=== PATIENT | female | born 1965 | race Caucasian/White ===

== ENCOUNTER 2024-12-12 13:01 | Day surgery (SDC) | payer MEDICARE, SELFPAY ==
--- NOTE | 2024-12-12 13:08 | EXP.PAIN.PRO ---
Procedure Date: 12/12/24 Time: 13:42 Anesthesiologist:: Kayla Jamil APRN Complications:: None Pre-procedure Diagnosis:: Degenerative disc disease of lumbar spine with lumbar radiculopathy symptoms Post-procedure Diagnosis:: Same Indications for Procedure:: Patient is a pleasant 59-year-old female who presents today for intrathecal refill and reprogram. Today she rates her pain a 7 out of 10. She denies any new trauma or injury. She does state that she has been having more pain and would like to see about having an increase in her pump.Patient is currently managed with morphine 2 mg/mL with a daily dose of 0.3 mg/day. She denies any side effects from this medication. She does state that she typically gets about a month or so between her refill dates. Patient does state that she knew she was running low with this medication and so she has been reserving her boluses as a precaution. patient does also have prescriptions of gabapentin from an outside provider. Eric has been reviewed and is appropriate. Physical Exam: General: Alert and oriented x3, no acute distress, pleasant and cooperative Lungs: Respirations even and unlabored, symmetrical chest expansion Eyes: PERRL Musculoskeletal: Flexion and extension of lumbar [spine] somewhat guarded secondary to pain, [antalgic gait noted] Neurological: Speech clear, no gross sensory deficit Procedure Details:: Informed consent was obtained and the risk and benefits of the procedure were explained to the patient. The patient had noninvasive monitoring placed including noninvasive blood pressure cuff and pulse oximeter. Patient's pump was interrogated. The area over the pump was cleansed with chlorhexidine as a cleansing solution. In sterile fashion the pump was accessed with a 22-gauge needle. Approximately 2.1 mls of the pump solution was removed and discarded appropriately. The pump was then refilled with 20 mL's of morphine 2 mg/mL. The needle was withdrawn and a bandage was placed over the puncture site. The infusion rate was reprogrammed and increased 10% to morphine 0.5499 mg/day. The patient tolerated well with no complication. Plan and Disposition:: Patient tolerated the procedure well with no complications and was discharged neurologically intact. I did discuss with the patient that we will plan on changing her concentration to see if she can get a little bit longer between her pump refills. Patient will be refilled with morphine 3 mg/mL at her next visit. Patient agrees with this plan of care. I did discuss with the patient that we will review over how patient will return to clinic on or before their next intrathecal refill date. We will see the patient back in the clinic at the next intrathecal refill. Patient has been instructed to contact the clinic with any concerns before the next appointment. Dr. Bhatt has reviewed this note and agrees with this plan of care. This note was dictated using voice recognition software and make contain errors or omissions. -- It Is medically necessary for this patient to continue to have their intrathecal pump refilled at regular intervals. This patient had an intrathecal pain pump implanted after meeting criteria of chronic intractable pain for greater than 3 months and failing conservative treatments. Patient has committed and been compliant to the treatment plan and all planned follow up care. Since implantation of the intrathecal pain pump, the patient has had decreased pain and been more functional. Oral medications have been reduced including intake of oral opioids. Patient continues to do well with intrathecal therapy with decrease in pain symptoms and increase in functional status. Stopping intrathecal medications can lead to life threatening withdrawal, seizures, cardiac arrest, severe pain, and possible . Pumps that are not refilled at regular intervals can be damages and cause and need for replacement. We continually titrate dose and concentration to optimize pain relief and function. We are limited in concentration for certain drugs to safely deliver medications through the pump and stay within the recommendations from the Polyanalgesic Consensus Committee Guidelines. Depending on dose and concentration these pumps may need to be refilled sooner than 3 months as we titrate. A UDS is needed to verify patient's compliance with our office pain contract. This is ordered based off specific treatments related to chronic pain with the potential to abuse certain medications.
[2024-12-12 13:19] VITALS: BP 126/60; PULSE 70; RESP 16; TEMP 36.8; O2SAT 98; BMI 29.2
[2024-12-12 13:36] VITALS: BP 165/78; PULSE 65; RESP 18; O2SAT 96
[2024-12-12 13:38] VITALS: BP 165/78; PULSE 67; RESP 18; O2SAT 98
[2024-12-12 13:50] VITALS: BP 117/66; PULSE 67; RESP 16; O2SAT 100
== END 2024-12-12 13:50 | disposition home or self-care (01) ==
PROVIDERS: PCP Nurse Practitioner Family; Visit Provider Nurse Practitioner Family
DX: M51.16 Intervertebral disc disorders with radiculopathy, lumbar region (principal)
CPT/HCPCS: 62370

== ENCOUNTER 2025-03-06 13:13 | Day surgery (SDC) | payer MEDICARE, SELFPAY ==
--- NOTE | 2025-03-06 13:18 | P.HP_ITS ---
History of Present Illness *Admission Date: 03/06/25 *Reason for visit:: Intrathecal refill; DDD *History of present illness: Degenerative disc disease [facility] Disclaimer: The information contained in this section may have been updated after the patient was seen, as this information can be updated by other users. Social History Smoking Status: Unknown if ever smoked alcohol intake: never current occupational status: other Travel in the last 8 weeks?: None Other Medical History Have you received the Flu Vaccine for this season: No Have you received the Pneumonia Vaccine: No Review of Systems Review of Systems Review of systems:: pertinent systems reviewed and negative unless documented below Review of systems (narrative): Review of Systems: General: No recent weight changes, no fever, no sleep disturbances Respiratory: No cough, no shortness of air, no recurring pulmonary infections Cardiovascular/peripheral vascular: No chest pain, no palpitations, no edema, no shortness of breath Gastrointestinal: No new onset incontinence, normal bowel movements reported Genitourinary: No new onset incontinence Musculoskeletal: Chronic back pain Psychiatric: [Normal mood/affect] Neurological: [Denies weakness in extremities], [denies balance issues] Meds Home Medications and Allergies Home Medications ?Medication ?Instructions ?Recorded ?Confirmed ?Type Unobtainable 12/12/24 12/12/24 History New Prescriptions to Start Prescriptions: Allergies Allergy/AdvReac Type Severity Reaction Status Date / Time exenatide (From [place]) Allergy Verified 12/11/24 15:42 tuberculin, purified protein Allergy Verified 12/11/24 15:42 deriva vaccine adjuvant system, Allergy Verified 12/11/24 15:42 AS01B lipo (From Shingrix (PF)) varicella-zoster virus Allergy Verified 12/11/24 15:42 glycoprotein (From Shingrix (PF)) Exam Constitutional Constitutional: no acute distress *Routine HEENT Exam Head: Present normocephalic and atraumatic Eye: Present PERRL ENT: Present mucous membranes moist *Routine Neck Exam Neck: Present supple *Routine Respiratory Exam Respiratory: Present CTA bilaterally *Routine Cardiovascular Exam Cardiovascular: Present RRR *Routine Abdominal Exam Abdominal: Present soft *Routine Rectal Exam Rectal:: deferred *Routine Genitalia Exam Genitalia:: deferred Routine Back/Spine/Pelvis Exam Back/Spine: Present pain with flexion *Routine Skin Exam Skin: Present intact and warm *Routine Neurological Exam Neurological: Present alert and oriented X3 Routine Psychiatric Exam Psychiatric: Present normal affect and normal thought process Assessment and Plan *Assessment and plan (1) Chronic back pain: Status: Acute Category: Medical Code(s): M54.9 - Dorsalgia, unspecified; G89.29 - Other chronic pain Plan Patient has been instructed to contact the clinic with any concerns before the next appointment. Dr. Bhatt has reviewed this note and agrees with this plan of care. This note was dictated using voice recognition software and make contain errors or omissions. All injections are used with Lidocaine, Bupivacaine and dexamethasone. Occasionally urine drug screen is needed to verify patient's compliance with our office pain contract. This is ordered based off specific treatments related to chronic pain with the potential to abuse certain medications.
[2025-03-06 13:19] VITALS: BP 101/70; PULSE 124; RESP 18; O2SAT 99; BMI 24.8
--- NOTE | 2025-03-06 13:19 | EXP.PAIN.PRO ---
Procedure Date: 03/06/25 Time: 13:32 Anesthesiologist:: Kayla Jamil APRN Complications:: None Pre-procedure Diagnosis:: Chronic back pain Post-procedure Diagnosis:: Same Indications for Procedure:: Patient is a pleasant 60-year-old female who presents today for intrathecal refill and reprogram. Today she rates her pain today a 6 out of 10. Patient states that she has been having increased pain and does believe part of it is related to her pump being she believes dry. Patient also states she had an episode of DKA and was hospitalized and is just been having increased generalized aches and pain related to her osteoarthritis and that during the hospitalization she was not given her baclofen or her gabapentin and felt like that caused increased flareups of her diabetic neuropathy. 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 Patient states that sometimes she feels like it gets where it bumps up against the pump and aggravates those symptoms. She is currently managed with morphine 2 mg/mL with a daily dose of 0.5499 mg/day. She denies any side effects.She has prescribed gabapentin from an outside provider. Her Eric has been reviewed. Physical Exam: General: Alert and oriented x3, no acute distress, pleasant and cooperative Lungs: Respirations even and unlabored, symmetrical chest expansion Eyes: PERRL Musculoskeletal: Flexion and extension of lumbar [spine] somewhat guarded secondary to pain, [antalgic gait noted] Neurological: Speech clear, no gross sensory deficit Procedure Details:: Informed consent was obtained and the risk and benefits of the procedure were explained to the patient. The patient had noninvasive monitoring placed including noninvasive blood pressure cuff and pulse oximeter. Patient's pump was interrogated. The area over the pump was cleansed with chlorhexidine as a cleansing solution. In sterile fashion the pump was accessed with a 22-gauge needle. Approximately 0.4 mls of the pump solution was removed and discarded appropriately. The pump was then refilled with 20 mL's of morphine 2 mg/mL. The needle was withdrawn and a bandage was placed over the puncture site. The infusion rate was reprogrammed and continued at its current dosage. The patient tolerated well with no complication. Plan and Disposition:: Patient tolerated the procedure well with no complications and was discharged neurologically intact. I did discuss with the patient regarding her nonfunctioning Nevro stimulator that she may be a beneficial candidate of generator replacement. I will reach out to [employer] to confirm whether or not her leads are compatible. Patient cannot get the device to charge or even turn on and has had it since 2019. We will plan on proceeding forward with the spinal cord stimulator generator replacement under fluoroscopy. We did review over the risk and benefits and give her a handout on the [employer] stimulator. Patient did state that this really did initially help with her diabetic neuropathy and it did improve her overall function. Patient has continued to progress with her diabetes and worsening symptoms. Patient would like to proceed forward with getting it replaced if any way possible to have overall improved quality of life and function on a daily basis. Patient has tried and failed conservative therapy including oral medication, heat and ice, topicals, physical therapy and continued at home stretching exercise for longer than 12 weeks that was physician guided. Patient will return to clinic on or before their next intrathecal refill date. We will see the patient back in the clinic at the next intrathecal refill. Patient has been instructed to contact the clinic with any concerns before the next appointment. Dr. Bhatt has reviewed this note and agrees with this plan of care. This note was dictated using voice recognition software and make contain errors or omissions. -- It Is medically necessary for this patient to continue to have their intrathecal pump refilled at regular intervals. This patient had an intrathecal pain pump implanted after meeting criteria of chronic intractable pain for greater than 3 months and failing conservative treatments. Patient has committed and been compliant to the treatment plan and all planned follow up care. Since implantation of the intrathecal pain pump, the patient has had decreased pain and been more functional. Oral medications have been reduced including intake of oral opioids. Patient continues to do well with intrathecal therapy with decrease in pain symptoms and increase in functional status. Stopping intrathecal medications can lead to life threatening withdrawal, seizures, cardiac arrest, severe pain, and possible . Pumps that are not refilled at regular intervals can be damages and cause and need for replacement. We continually titrate dose and concentration to optimize pain relief and function. We are limited in concentration for certain drugs to safely deliver medications through the pump and stay within the recommendations from the Polyanalgesic Consensus Committee Guidelines. Depending on dose and concentration these pumps may need to be refilled sooner than 3 months as we titrate. A UDS is needed to verify patient's compliance with our office pain contract. This is ordered based off specific treatments related to chronic pain with the potential to abuse certain medications.
[2025-03-06 13:28] VITALS: BP 119/77; PULSE 130; RESP 18; O2SAT 98
[2025-03-06 13:42] VITALS: BP 107/70; PULSE 95; RESP 18; O2SAT 95
== END 2025-03-06 13:42 | disposition home or self-care (01) ==
PROVIDERS: PCP Nurse Practitioner Family; Visit Provider Nurse Practitioner Family
DX: Z45.1 Encounter for adjustment and management of infusion pump (principal); G89.29 Other chronic pain; M54.9 Dorsalgia, unspecified; M19.90 Unspecified osteoarthritis, unspecified site; E11.40 Type 2 diabetes mellitus with diabetic neuropathy, unspecified; Z88.8 Allergy status to other drugs, medicaments and biological substances
CPT/HCPCS: 62370

== ENCOUNTER 2025-04-17 11:38 | Day surgery (SDC) | payer MEDICARE, SELFPAY ==
[2025-04-17 11:47] VITALS: BP 130/63; PULSE 87; RESP 16; O2SAT 97; BMI 29.6
--- NOTE | 2025-04-17 11:51 | EXP.PM.HP ---
History of Present Illness *Admission Date: 04/17/25 *Reason for visit:: Intrathecal refill; DDD *History of present illness: Same [facility] Disclaimer: The information contained in this section may have been updated after the patient was seen, as this information can be updated by other users. Social History Smoking Status: Unknown if ever smoked alcohol intake: never current occupational status: other Travel in the last 8 weeks?: None Have you lived/traveled outside [place] in past 30 days?: No Contact w/someone who lives/traveled outside US past 30 days?: No Exposure to someone with infectious disease in past 14 days?: No Do you have a fever (greater than 100.4 F or 38 C)?: No Have you tested positive for COVID-19?: No Exposed to someone with COVID-19 in past 14 days?: No Do you have a sore throat?: No Do you have a cough?: No Do you have any weakness?: No Do you have any diarrhea?: No Are you experiencing any unusual bleeding?: No Do you have any muscle aches/pain?: No Do you have any abdominal pain?: No Are you experiencing loss of taste or smell?: No Other Medical History Have you received the Flu Vaccine for this season: No Have you received the Pneumonia Vaccine: No Review of Systems Review of Systems Review of systems:: pertinent systems reviewed and negative unless documented below Review of systems (narrative): Review of Systems: General: No recent weight changes, no fever, no sleep disturbances Respiratory: No cough, no shortness of air, no recurring pulmonary infections Cardiovascular/peripheral vascular: No chest pain, no palpitations, no edema, no shortness of breath Gastrointestinal: No new onset incontinence, normal bowel movements reported Genitourinary: No new onset incontinence Musculoskeletal: Chronic back pain Psychiatric: [Normal mood/affect] Neurological: [Denies weakness in extremities], [denies balance issues] Meds Home Medications and Allergies Home Medications ?Medication ?Instructions ?Recorded ?Confirmed ?Type Unobtainable 12/12/24 12/12/24 History New Prescriptions to Start Prescriptions: Allergies Allergy/AdvReac Type Severity Reaction Status Date / Time exenatide (From [place]) Allergy Verified 12/11/24 15:42 tuberculin, purified protein Allergy Verified 12/11/24 15:42 deriva vaccine adjuvant system, Allergy Verified 12/11/24 15:42 AS01B lipo (From Shingrix (PF)) varicella-zoster virus Allergy Verified 12/11/24 15:42 glycoprotein (From Shingrix (PF)) Exam Data for Last 24 hours Vital signs and Labs for Last 24 Hours: Pulse Resp BP Pulse Ox O2 Del Method 87 16 130/63 97 Room Air 04/17/25 11:47 04/17/25 11:47 04/17/25 11:47 04/17/25 11:47 04/17/25 11:47 I & O for Last 24 hours: Intake & Output 04/14/25 04/15/25 04/16/25 04/17/25 23:59 23:59 23:59 23:59 Weight 162 lb Constitutional Constitutional: no acute distress *Routine HEENT Exam Head: Present normocephalic and atraumatic Eye: Present PERRL ENT: Present mucous membranes moist *Routine Neck Exam Neck: Present supple *Routine Respiratory Exam Respiratory: Present CTA bilaterally *Routine Cardiovascular Exam Cardiovascular: Present RRR *Routine Abdominal Exam Abdominal: Present soft *Routine Rectal Exam Rectal:: deferred *Routine Genitalia Exam Genitalia:: deferred Routine Back/Spine/Pelvis Exam Back/Spine: Present pain with flexion *Routine Skin Exam Skin: Present intact and warm *Routine Neurological Exam Neurological: Present alert and oriented X3 Routine Psychiatric Exam Psychiatric: Present normal affect and normal thought process Assessment and Plan *Assessment and plan (1) Chronic back pain: Status: Acute Category: Medical Code(s): M54.9 - Dorsalgia, unspecified; G89.29 - Other chronic pain Plan Patient has been instructed to contact the clinic with any concerns before the next appointment. Dr. Bhatt has reviewed this note and agrees with this plan of care. This note was dictated using voice recognition software and make contain errors or omissions. All injections are used with Lidocaine, Bupivacaine and dexamethasone. Occasionally urine drug screen is needed to verify patient's compliance with our office pain contract. This is ordered based off specific treatments related to chronic pain with the potential to abuse certain medications.
[2025-04-17 11:54] VITALS: BP 139/79; PULSE 76; RESP 18; O2SAT 100
--- NOTE | 2025-04-17 11:54 | P.PCN_ITS ---
Procedure Date: 04/17/25 Time: 11:55 Anesthesiologist:: Kayla Jamil APRN Complications:: None Pre-procedure Diagnosis:: Degenerative disc disease, chronic back pain, lumbar radiculopathy Post-procedure Diagnosis:: Same Indications for Procedure:: Patient is a pleasant 60-year-old female who presents today for intrathecal refill and reprogram. Today she rates her pain a 6 out of 10. She does states she has recently had a couple falls but does not feel like she did anything substantial. Patient states that 1 time she was walking in the yard and ended up having one of her feet fall into a hole causing her to stumble. She states the other time was related to her increasing peripheral neuropathy. Patient does not believe she has any side effects to her pump. Patient is currently managed with morphine 2 mg/mL with a daily dose of 0.5499 mg/day. She does also have a nonfunctioning Nevro stimulator in place. At our last visit we had discussed the possibility of having this replaced with Lettuce. Patient is asking if we have any updates regarding this. Her Eric has been reviewed and is appropriate. Physical Exam: General: Alert and oriented x3, no acute distress, pleasant and cooperative Lungs: Respirations even and unlabored, symmetrical chest expansion Eyes: PERRL Musculoskeletal: Flexion and extension of lumbar [spine] somewhat guarded secondary to pain, [antalgic gait noted] Neurological: Speech clear, no gross sensory deficit Procedure Details:: Informed consent was obtained and the risk and benefits of the procedure were explained to the patient. The patient had noninvasive monitoring placed including noninvasive blood pressure cuff and pulse oximeter. Patient's pump was interrogated. The area over the pump was cleansed with chlorhexidine as a cleansing solution. In sterile fashion the pump was accessed with a 22-gauge needle. Approximately 7 mls of the pump solution was removed and discarded appropriately. The pump was then refilled with 20 mL's of morphine 2 mg/mL. The needle was withdrawn and a bandage was placed over the puncture site. The infusion rate was reprogrammed and increased 10% to morphine 0.6054 mg/day. The patient tolerated well with no complication. Plan and Disposition:: Patient tolerated the procedure well with no complications and was discharged neurologically intact. I did discuss with the patient that we have not yet submitted to insurance due to the fact that we are still a little bit out from her possible surgical date. We are currently full on her OR schedule but will be submitting her for the May. Patient agrees with this plan of care. Patient will return to clinic on or before their next intrathecal refill date. We will see the patient back in the clinic at the next intrathecal refill. Patient has been instructed to contact the clinic with any concerns before the next appointment. Dr. Bhatt has reviewed this note and agrees with this plan of care. This note was dictated using voice recognition software and make contain errors or omissions. -- It Is medically necessary for this patient to continue to have their intrathecal pump refilled at regular intervals. This patient had an intrathecal pain pump implanted after meeting criteria of chronic intractable pain for greater than 3 months and failing conservative treatments. Patient has committed and been co mpliant to the treatment plan and all planned follow up care. Since implantation of the intrathecal pain pump, the patient has had decreased pain and been more functional. Oral medications have been reduced including intake of oral opioids. Patient continues to do well with intrathecal therapy with decrease in pain symptoms and increase in functional status. Stopping intrathecal medications can lead to life threatening withdrawal, seizures, cardiac arrest, severe pain, and possible . Pumps that are not refilled at regular intervals can be damages and cause and need for replacement. We continually titrate dose and concentration to optimize pain relief and function. We are limited in concentration for certain drugs to safely deliver medications through the pump and stay within the recommendations from the Polyanalgesic Consensus Committee Guidelines. Depending on dose and concentration these pumps may need to be refilled sooner than 3 months as we titrate. A UDS is needed to verify patient's compliance with our office pain contract. This is ordered based off specific treatments related to chronic pain with the potential to abuse certain medications.
[2025-04-17 12:09] VITALS: BP 146/72; PULSE 71; RESP 18; O2SAT 97
== END 2025-04-17 12:09 | disposition home or self-care (01) ==
PROVIDERS: PCP Nurse Practitioner Family; Visit Provider Nurse Practitioner Family
DX: M54.9 Dorsalgia, unspecified (principal); G89.29 Other chronic pain; Z45.1 Encounter for adjustment and management of infusion pump; M51.16 Intervertebral disc disorders with radiculopathy, lumbar region; Z88.7 Allergy status to serum and vaccine; Z88.8 Allergy status to other drugs, medicaments and biological substances
CPT/HCPCS: 62370

== ENCOUNTER 2025-05-15 13:20 | Day surgery (SDC) | payer MEDICARE, SELFPAY ==
--- NOTE | 2025-05-15 13:28 | P.HP_ITS ---
History of Present Illness *Admission Date: 05/15/25 *Reason for visit:: Intrathecal refill; DDD *History of present illness: Same [facility] Disclaimer: The information contained in this section may have been updated after the patient was seen, as this information can be updated by other users. Social History Smoking Status: Unknown if ever smoked alcohol intake: never current occupational status: other Travel in the last 8 weeks?: None Have you lived/traveled outside [place] in past 30 days?: No Contact w/someone who lives/traveled outside [place] past 30 days?: No Exposure to someone with infectious disease in past 14 days?: No Do you have a fever (greater than 100.4 F or 38 C)?: No Have you tested positive for COVID-19?: No Exposed to someone with COVID-19 in past 14 days?: No Do you have a sore throat?: No Do you have a cough?: No Do you have any weakness?: No Do you have any diarrhea?: No Are you experiencing any unusual bleeding?: No Do you have any muscle aches/pain?: No Do you have any abdominal pain?: No Are you experiencing loss of taste or smell?: No Other Medical History Have you received the Flu Vaccine for this season: No Have you received the Pneumonia Vaccine: No Meds Home Medications and Allergies Home Medications ?Medication ?Instructions ?Recorded ?Confirmed ?Type Unobtainable 12/12/24 12/12/24 History New Prescriptions to Start Prescriptions: Allergies Allergy/AdvReac Type Severity Reaction Status Date / Time exenatide (From Byetta) Allergy Verified 12/11/24 15:42 tuberculin, purified protein Allergy Verified 12/11/24 15:42 deriva vaccine adjuvant system, Allergy Verified 12/11/24 15:42 AS01B lipo (From Shingrix (PF)) varicella-zoster virus Allergy Verified 12/11/24 15:42 glycoprotein (From Shingrix (PF)) Exam *Routine HEENT Exam Head: Present normocephalic and atraumatic Eye: Present PERRL ENT: Present mucous membranes moist *Routine Neck Exam Neck: Present supple *Routine Respiratory Exam Respiratory: Present CTA bilaterally *Routine Cardiovascular Exam Cardiovascular: Present RRR *Routine Abdominal Exam Abdominal: Present soft *Routine Rectal Exam Rectal:: deferred *Routine Genitalia Exam Genitalia:: deferred Routine Back/Spine/Pelvis Exam Back/Spine: Present pain with flexion *Routine Skin Exam Skin: Present intact, dry and warm *Routine Neurological Exam Neurological: Present alert and oriented X3
--- NOTE | 2025-05-15 13:29 | P.PCN_ITS ---
Procedure Date: 05/15/25 Time: 14:18 Anesthesiologist:: Kayla Jamil APRN Complications:: None Pre-procedure Diagnosis:: Degenerative disc disease of lumbar spine, chronic pain syndrome Post-procedure Diagnosis:: Same Indications for Procedure:: Patient is a pleasant 60-year-old female who presents today for intrathecal refill and reprogram. Patient rates her pain today as 6 out of 10. She denies any new falls or injuries. She is asking if we can go up on her pump. Patient does currently have morphine 2 mg/mL with a daily dose of 0.6054 mg/day. She denies any side effects from this. She does also have a nonfunctioning Nevro stimulator in place. Her Eric has been reviewed and is appropriate. Physical Exam: General: Alert and oriented x3, no acute distress, pleasant and cooperative Lungs: Respirations even and unlabored, symmetrical chest expansion Eyes: PERRL Musculoskeletal: Flexion and extension of lumbar [spine] somewhat guarded secondary to pain, [antalgic gait noted] Neurological: Speech clear, no gross sensory deficit Procedure Details:: Informed consent was obtained and the risk and benefits of the procedure were explained to the patient. The patient had noninvasive monitoring placed including noninvasive blood pressure cuff and pulse oximeter. Patient's pump was interrogated. The area over the pump was cleansed with chlorhexidine as a cleansing solution. In sterile fashion the pump was accessed with a 22-gauge needle. Approximately 10.8 mls of the pump solution was removed and discarded appropriately. The pump was then refilled with 20 mL's of morphine 4 mg/mL. The needle was withdrawn and a bandage was placed over the puncture site. The infusion rate was reprogrammed and increased to 0.671 mg/day. The patient tolerated well with no complication. Plan and Disposition:: Patient tolerated the procedure well with no complications and was discharged neurologically intact. Patient was counseled that she will have a 27-1/2-hour bridge bolus from the old concentration to the new concentration and during that time she will have to wait before using her PTM device. Patient acknowledges understanding agrees with plan of care. Patient will return to clinic on or before their next intrathecal refill date. We will see the patient back in the clinic at the next intrathecal refill. Patient has been instructed to contact the clinic with any concerns before the next appointment. Dr. Bhatt has reviewed this note and agrees with this plan of care. This note was dictated using voice recognition software and make contain errors or omissions. -- It Is medically necessary for this patient to continue to have their intrathecal pump refilled at regular intervals. This patient had an intrathecal pain pump implanted after meeting criteria of chronic intractable pain for greater than 3 months and failing conservative treatments. Patient has committed and been compliant to the treatment plan and all planned follow up care. Since imp lantation of the intrathecal pain pump, the patient has had decreased pain and been more functional. Oral medications have been reduced including intake of oral opioids. Patient continues to do well with intrathecal therapy with decrease in pain symptoms and increase in functional status. Stopping intrathecal medications can lead to life threatening withdrawal, seizures, cardiac arrest, severe pain, and possible . Pumps that are not refilled at regular intervals can be damages and cause and need for replacement. We continually titrate dose and concentration to optimize pain relief and function. We are limited in concentration for certain drugs to safely deliver medications through the pump and stay within the recommendations from the Polyanalgesic Consensus Committee Guidelines. Depending on dose and concentration these pumps may need to be refilled sooner than 3 months as we titrate. A UDS is needed to verify patient's compliance with our office pain contract. This is ordered based off specific treatments related to chronic pain with the potential to abuse certain medications.
[2025-05-15 13:57] VITALS: BP 148/78; PULSE 79; RESP 18; O2SAT 99; BMI 33.5
[2025-05-15 14:11] VITALS: BP 132/70; PULSE 74; RESP 18; O2SAT 97
[2025-05-15 14:21] VITALS: BP 147/83; PULSE 78; RESP 18; O2SAT 97
== END 2025-05-15 14:21 | disposition home or self-care (01) ==
PROVIDERS: PCP Nurse Practitioner Family; Visit Provider Nurse Practitioner Family
DX: M51.369 Other intervertebral disc degeneration, lumbar region without mention of lumbar back pain or lower extremity pain (principal); G89.4 Chronic pain syndrome; Z88.8 Allergy status to other drugs, medicaments and biological substances; Z88.7 Allergy status to serum and vaccine; Z45.1 Encounter for adjustment and management of infusion pump
CPT/HCPCS: 62370

== ENCOUNTER 2025-07-10 12:18 | Outpatient (CLI) | payer MEDICARE, SELFPAY ==
--- OUTSIDE RECORDS SUMMARY | 2018-04-19 11:00 | XMS_ITS | Continuity of Care Document ---
Author Organization [facility] Address [address] [place] [address] Phone Care Team Providers Care Nail Puller Name Role Phone Fernando Chavez MD Unavailable Unavailable Allergies, Adverse Reactions, Alerts Substance Reaction Status Criticality No Known Allergies Active No Inform ation Medications Medication Instructions Dosage Effective Dates (start - stop) Status Comments Amaryl 4 mg tablet - Active BENAZEPRIL HCL (unknown strength) Not Available - Active CYMBALTA (unknown strength) Not Available - Active fluoxetine 20 mg tablet take 1 tablet by oral route every day in the morning 20 MG - Active Januvia 100 mg tablet take 1 tablet by oral route every day 100 MG - Active cetirizine 10 mg tablet take 1 tablet by oral route every day 10 MG - Active naproxen 500 mg tablet take 1 tablet by oral route 2 times every day with food 500 MG - Active metformin 1,000 mg tablet take 1 tablet by oral route 2 times every day with morning and evening meals 1000 MG - Active Lyrica 200 mg capsule take 1 capsule by oral route 3 times every day 200 MG - Active Basaglar KwikPen U-100 Insulin 100 unit/mL (3 mL) subcutaneous inject by subcutaneous route as per insulin protocol 0.00 - Active tizanidine 4 mg tablet take 1 tablet by oral route every 8 hours as needed not to exceed 3 doses in 24 hours - Active Tylenol 8 Hour 650 mg tablet,extended release take 2.5 tablet by oral route every 8 hours as needed swallowing whole with water. Do not break, crush, dissolve and/or chew. 1625 MG - Active Procedures Procedure Date DESTROY LUMB/SAC FACET JNT DESTROY L/S FACET JNT ADDL Methylprednisolone 40 MG inj Office/outpatient visit,[facility] 2017 INJ PARAVERT F JNT L/S 1 LEV INJ PARAVERT F JNT L/S 2 LEV INJ PARAVERT F JNT L/S 3 LEV Methylprednisolone 40 MG inj Office/outpatient visit,[facility] 2017 X-ray exam lwr spine, min 4 views Advance Directives Directive Yes / No Effective Date File Name No Information Encounters Encounter Description Practice Location Reason(s) For Visit Diagnoses Date Provider Providers Copied on Encounter [facility], [facility] [place], [address], [place] tel:[phone] [facility] No Information 8 Kathy King. [address] [place], [place], [id number], [place]. tel:[phone] Office/outpa tient visit,[facility], [facility] [place], [address], tel:[phone] [facility] lumbar spine (chief complaint) Low back painSpondylos is w/o myelopathy of sacral region 8 Kathy King. [address] [place], [place], [id number], [place]. tel:[phone] Referring Provider: Ammon Castro, [address] [place], [address]. tel:[phone] Office/outpa tient visit,[facility], [address] [place], [address], [place] tel:[phone] [facility] No Information 8 Austin Verde. [address], [place], [id number], [place]. tel:[phone] Referring Provider: Deshaun Mason III L, [address] [place], [address]. tel:[phone] Family History Family Member Type Diagnosis Age At Onset Mother Problem (finding) Thyroid disorder Mother Problem (finding) Cancer, unknown Father Problem (finding) Heart disease Father Problem (finding) diabetes Father Problem (finding) hypertension Payers Payer name Insurance type Covered alliance party ID Authoriza tion(s) No Information Social History Type Description Quantity Date Captured Comments Sex Female Smoking Status No Information Chief Complaint And Reason For Visit No Information Reason For Referral Reason For Referral No Information History Of Present Illness Encounter Date Complaint History Of Prese nt Illness lumbar spine Functional Status Date Functional Assessmen t No Information Instructions Date Instruction Additional Infor mation No Information Assessments Type Assessment Date No Information Patient Care Teams Name Effective Dates (start - stop) Status Members No Information
--- OUTSIDE RECORDS SUMMARY | 2025-06-17 14:15 | XMS_ITS | Encounter Summary ---
Author Organization [place] [address] Care Team Providers Care Photoengraving Photographer Name Role Phone Lorna Maharaj MD Unavailable [phone] Isabella HERNANDEZ MD, Deshaun Wilson Primary Care P rovider Reason for Visit * Reason Comments Diabetes Encounter Details Date Type Department Care Team (Late st Contact Info) Description 06/17/2025 2:15 PM EDT [facility] [place] [address] [place] [address] Lorna Maharaj MD [address] [place] [address] Type 2 diabetes mellitus with diabetic neuropathy, with long-term current use of insulin (HCC) (Primary Dx); Hypertension associated with type 2 diabetes mellitus (HCC); Hyperlipidemia associated with type 2 diabetes mellitus (HCC); Goiter, nontoxic, multinodular; Vitamin D deficiency; Obesity (BMI 30-39.9) Social History Tobacco Use Types Packs/Day Years Used Date Smoking Tobacco: Never Smokeless Tobacco: Never Alcohol Use Standard Drinks/Week Comments No 0 (1 standard drink = 0.6 oz pur e alcohol) Comments No Sex and Gender Information Value Date Recorded Sex Assigned at Not on file Legal Sex Female 4:50 AM EDT Gender Identity Not on file Sexual Orientation Not on file documented as of this encounter Last Filed Vital Signs Vital Sign Reading Time Taken Comments Blood Pressure 118/68 06/17/2025 2:12 PM EDT Pulse 74 06/17/2025 2:12 PM EDT Temperature - - Respiratory Rate - - Oxygen Saturation - - Inhaled Oxygen Concentration - - Weight 81.3 kg (179 lb 4.8 oz) 06/17/2025 2:12 P M EDT Height 157.5 cm (5' 2 ) 06/17/2025 2:12 PM EDT Body Mass Index 32.79 06/17/2025 2:12 PM EDT documented in this encounter Ordered Prescriptions Prescription Sig Dispense Quantity Refills Last Filled Start Date End Date semaglutide 0.25 mg or 0.5 mg (2 mg/3 mL) SubQ Pen InjectorIndication s:Type 2 diabetes mellitus with diabetic neuropathy, with long-term current use of insulin (HCC) Inject 0.5 mg under the skin once a week. 6 mL 06/17/2025 07/10/2025 documented in this encounter Progress Notes * Lorna Maharaj MD - 06/17/2025 3:45 PM EDTAssociated Problem(s): Vitamin D deficiency Stable on vitamin D regimen * Lorna Maharaj MD - 06/17/2025 3:45 PM EDTAssociated Problem(s): Obesity (BMI 30-39.9) She is to concentrate on dietary efforts * Lorna Maharaj MD - 06/17/2025 3:44 PM EDTAssociated Problem(s): Type 2 diabetes mellitus with diabetic neuropathy, with long-term current use of insulin (HCC) Glycemic control has improved significantly. However the patient has significant postprandial variability and has experienced almost daily hypoglycemia. She was advised to continue 0.5 mg dose of Ozempic for now to see whether bloating subsides over the next 4 to 6 weeks. She was provided with samples We will discontinue glimepiride to avoid hypoglycemia [facility] * Lorna Maharaj MD - 06/17/2025 3:43 PM EDTAssociated Problem(s): Hypertension associated with type 2 diabetes mellitus (HCC) Blood pressure is well controlled on a current medication regimen. The patient is to continue present medication regimen. * Lorna Maharaj MD - 06/17/2025 3:43 PM EDTAssociated Problem(s): Hyperlipidemia associated with type 2 diabetes mellitus (HCC) Well-controlled on statin regimen * Lorna Maharaj MD - 06/17/2025 3:42 PM EDTAssociated Problem(s): Goiter, nontoxic, multinodular Physical exam reveals stable bilobar nodule goiter. The patient is euthyroid clinically and biochemically. Continue to monitor for now * Lorna Maharaj MD - 06/17/2025 2:15 PM EDT Images from the original note were not included. Subjective Subjective: Patient ID: Shantel Jade is a 60 y.o. female. Chief Complaint Patient presents with Diabetes [facility]: Thyroid nodule, previous biopsy, annual ultrasounds. Dr. Yesenia Shay, Pain: Aaronart Bhatt Cemetery Manager: Wander Mcginnis Orthopedic: Dr. Satish Vu Neurologist: Dr. Lamberto Tony Press Worker Helper: Dr. Lamberto Rosales GI - EGD 03/1807/12/2012 12:41 PM 07/12/2012 2:29 PM 09/12/2022 12:52 PM Vitals Weight 271 ! 241 THE HIGHEST WEIGHT WAS 305 # Current diabetic Medications: Jardiance Glimepiride Ozempic 0.5 mg - bloated 04/08/2025 2:26 PM Insulin Dosing Basal Insulin Type lantus Basal Insulin - A.M. 0 Basal Insulin - P.M. 30 Hypoglycemia: Fasting and during today Testing/Review of blood Sugars: DEXCOM INTERVAL HISTORY Ozempic 0.5 mg for 4 weeks - bloating No nausea, no emesis, no abdominal pain Less hungry overall Blood sugars have been much better No GI problems Has been feeling well overall Has lost 139 # OVERALL 40 % TBW but has been regaining weight On morphine pump The pain is under better control Has been consistent with medications Previous diabetic medications Byetta-injection site reaction Glipizide-changed to glimepiride Metformin-nausea while on Ozempic Ozempic-changed to Mounjaro Mounjaro 7.5 mg was stopped when presented with N/V/starvation ketosis duration of diabetes: 2011 ? Knowledge/Classes of Diabetes Management: yes Microvascular complications Retinopathy: No Neuropathy: Yes - Painful paresthesias Nephropathy: Jardiance Macrovascular complications: None Statin G - 0 Natural menopause at the age of 47 HRT: no Fractures: left tibial plautea fx Kidney stones: no Medical Cytology Report Case: [id number] Authorizing Provider: Lorna Maharaj MD Collected: 05/19/2024 1400 Ordering Location: [facility] Received: 05/19/2024 1055 Pathologist: Azra Pineda MD Specimens: A) - Thyroid, Right B) - Thyroid, Left NON-SUPERVISOR [facility] FINAL DIAGNOSIS A) Thyroid, right lobe, fine needle aspiration: - Consistent with a benign follicular nodule ([place] Category II). B) Thyroid, left lobe, fine needle aspiration: - Consistent with a benign follicular nodule ([place] Category II). Lab Results Component Value Date TSH 1.780 06/25/2024 TSH 0.918 08/16/2022 Lab Results Component Value Date HGBA1C 7.1 (A) 03/09/2025 HGBA1C 7.2 (A) 09/22/2024 HGBA1C 6.2 06/25/2024 Lab Results Component Value Date CHOLESTEROL 135 06/19/2023 CHOLESTEROL 161 02/27/2023 HDL 38 (L) 06/19/2023 HDL 54 02/27/2023 HDL 55 08/16/2022 LDLCALC 72 06/19/2023 LDLCALC 79 02/27/2023 LDLCALC 88 08/16/2022 TRIG 92 06/25/2024 TRIG 141 06/19/2023 TRIG 167 (H) 02/27/2023 Lab Results Component Value Date CREATININE 0.67 06/19/2023 AST 18 06/25/2024 ALT 8 06/25/2024 Basal Insulin - A.M.: 0 Basal Insulin - P.M.: 30 Basal Insulin Type: lantus Patients past medical, family and social histories were reviewed and updated. There were no changesexcept as noted. Review of Systems Constitutional: Positive for fatigue. Negative for activity change, appetite change, chills, diaphoresis and fever. HENT: Negative. Negative for congestion, dental problem, drooling, ear discharge, facial swelling, hearing loss, mouth sores, nosebleeds, postnasal drip, rhinorrhea, sinus pressure, sore throat, trouble swallowing and voice change. Eyes: Negative. Negative for photophobia, pain, discharge, redness and visual disturbance. Respiratory: Negative. Negative for cough, choking, chest tightness, shortness of breath, wheezing and stridor. Cardiovascular: Negative. Negative for chest pain and palpitations. Gastrointestinal: Negative. Negative for abdominal distention, abdominal pain, anal bleeding, diarrhea and rectal pain. Endocrine: Positive for cold intolerance, polydipsia and polyphagia. Negative for heat intolerance and polyuria. Genitourinary: Negative. Negative for decreased urine volume, dysuria, flank pain, frequency, genital sores, hematuria, menstrual problem, pelvic pain, urgency, vaginal discharge and vaginal pain. Musculoskeletal: Positive for arthralgias, back pain, myalgias, neck pain and neck stiffness. Skin: Positive for color change. Negative for pallor, rash and wound. Allergic/Immunologic: Negative. Negative for food allergies and immunocompromised state. Neurological: Negative. Negative for dizziness, tremors, seizures, facial asymmetry, speech difficulty, weakness, light-headedness and numbness. Hematological: Negative. Does not bruise/bleed easily. Psychiatric/Behavioral: Negative. Negative for agitation, behavioral problems, confusion, hallucinations, self-injury, sleep disturbance and suicidal ideas. The patient is not nervous/anxious and is not hyperactive. Objective Objective: Vitals: 06/17/25 1412 BP: 118/68 BP Location: Left arm Patient Position: Sitting Pulse: 74 Weight: 179 lb 4.8 oz (81.3 kg) Height: 5' 2 (1.575 m) Body mass index is 32.79 kg/m??. Physical Exam Vitals reviewed. Constitutional: Appearance: She is obese. HENT: Head: Atraumatic. Nose: Nose normal. Eyes: Extraocular Movements: Extraocular movements intact. Neck: Comments: Bilobar nodule goiter, ? Left thyroid nodule. No obvious palpable cervical lymphoadenopathy Cardiovascular: Rate and Rhythm: Normal rate and regular rhythm. Pulses: Normal pulses. Heart sounds: Normal heart sounds. Pulmonary: Effort: Pulmonary effort is normal. No respiratory distress. Breath sounds: Normal breath sounds. Abdominal: General: Abdomen is flat. Musculoskeletal: General: Normal range of motion. Cervical back: Normal range of motion. Right lower leg: No edema. Left lower leg: No edema. Skin: General: Skin is warm and dry. Neurological: General: No focal deficit present. Mental Status: She is alert. Mental status is at baseline. Psychiatric: Mood and Affect: Mood normal. 03/17/2025 7:27 AM Monofilament & Eye Exam Foot Exam Performed? Yes R Posterior Tibial Present L Posterior Tibial Present R Dorsalis Pedis Present L Dorsalis Pedis Present R Monofilament Present L Monofilament Present R Inspection Normal L Inspection Normal Assessment and Plan: Diagnoses and all orders for this visit: Type 2 diabetes mellitus with diabetic neuropathy, with long-term current use of insulin ([facility]) (Chronic) Assessment & Plan: Glycemic control has improved significantly. However the patient has significant postprandial variability and has experienced almost daily hypoglycemia. She was advised to continue 0.5 mg dose of Ozempic for now to see whether bloating subsides over the next 4 to 6 weeks. She was provided with samples We will discontinue glimepiride to avoid hypoglycemia Blood test results from [facility] were reviewed in detail Orders: - POCT GLYCATED HEMOGLOBIN, TOTAL - semaglutide 0.25 mg or 0.5 mg (2 mg/3 mL) SubQ Pen Injector; Inject 0.5 mg under the skin once a week. Dispense: 6 mL; Refill: 0 Hypertension associated with type 2 diabetes mellitus ([facility]) (Chronic) Assessment & Plan: Blood pressure is well controlled on a current medication regimen. The patient is to continue present medication regimen. Hyperlipidemia associated with type 2 diabetes mellitus (HCC) (Chronic) Assessment & Plan: Well-controlled on statin regimen Orders: - POCT GLYCATED HEMOGLOBIN, TOTAL Goiter, nontoxic, multinodular Overview: Bilateral biopsy in 2019 and 04/2024 Assessment & Plan: Physical exam reveals stable bilobar nodule goiter. The patient is euthyroid clinically and biochemically. Continue to monitor for now Vitamin D deficiency Assessment & Plan: Stable on vitamin D regimen Obesity (BMI 30-39.9) Assessment & Plan: She is to concentrate on dietary efforts Medications Discontinued During This Encounter Medication Reason glimepiride (AMARYL) 4 mg Oral Tablet Cancelled by semaglutide 0.25 mg or 0.5 mg (2 mg/3 mL) SubQ Pen Injector Reorder The independent review of chart notes, labs, physical findings and analysis of appropriate medications represents a decision of high complexity with regard to health threatening risks, benefits, and side effects of medicines and underlying conditions managed. Return in about 2 months (around 08/17/2025). Answers submitted by the patient for this visit: Review of Symptoms: Please check all that currently apply to you. (Submitted on 12/13/2023) weight loss: Yes hematochezia: No painful intercourse: No Incontinence: No vaginal bleeding: No joint pain: Yes joint swelling: Yes loss of consciousness: No swollen glands: No documented in this encounter Plan of Treatment Upcoming Encounters Date Type Department Care Team (Late st Contact Info) Description 08/19/2025 1:00 PM EST Office Visit [facility] [place] [address] [facility] [address] [place] [phone] Lorna Maharaj MD [address] [place] [address] documented as of this encounter Procedures Procedure Name Priority Date/Time Associated Diagnosis Comments SCANNED LABS 07/01/2025 10:57 AM EDT documented in this encounter Results * SCANNED LABS (07/01/2025 10:57 AM EDT) 07/01/2025 10:5 7 AM EDT us Unknown Provider HEMATOLOGY ORDERABLES Final Res ult documented in this encounter Visit Diagnoses Diagnosis Type 2 diabetes mellitus with diabetic neuropathy, with long-term current use of insulin (HCC)- Primary Hypertension associated with type 2 diabetes mellitus (HCC) Hyperlipidemia associated with type 2 diabetes mellitus (HCC) Goiter, nontoxic, multinodular Nontoxic multinodular goiter Vitamin D deficiency Unspecified vitamin D deficiency Obesity (BMI 30-39.9) Obesity, unspecified documented in this encounter Discontinued Medications Medication Sig Discontinue Reason Start Date End Da te glimepiride (AMARYL) 4 mg Oral TabletIndications:Type 2 diabetes mellitus with diabetic neuropathy, with long-term current use of insulin (HCC) Take 1 Tablet by mouth daily. Cancelled by 04/08/2025 06/17/2025 semaglutide 0.25 mg or 0.5 mg (2 mg/3 mL) SubQ Pen InjectorIndications:Type 2 diabetes mellitus with diabetic neuropathy, with long-term current use of insulin (HCC) 0.25 mg once a week for 4 weeks then 0.5 mg once a week Reorder 04/08/2025 06/17/2025 documented as of this encounter Historical Medications * This list may reflect changes made after this encounter. morphine 2 mg/mL IV Syringe Inject 2 mg under the skin. hydroCHLOROthiazi de 12.5 mg Oral Tablet Take 12.5 mg by mouth every morning. 05/24/2025 added in this encounter Care Teams Photoengraving Photographer Relationship Specialty Start Date End Date Deshaun Mason III, MD [address] [place] [address] PCP - General Family Medicine 09/12/22 Lorna Maharaj MD [address] [place] [address] Consulting Physician Internal Medicine-Endocrinology, Diabetes & Metabolism 09/12/22 documented as of this encounter
--- OUTSIDE RECORDS SUMMARY | 2025-07-10 12:20 | XMS_ITS | Clinical Summary ---
Author Organization [facility] Address [address] [place] [address] Phone Care Team Providers Care Elevator Conductor Name Role Phone Lorna Maharaj MD Unavailable [phone] Isabella HERNANDEZ MD, [facility] P rovider Allergies Active Allergy Reactions Criticality Noted Date Comments Exenatide Other (See Comments) 07/12/2012 Injection site reaction Calcium Hives High 07/22/2012 Calcium Citrate Other (See Comments) Low 03/29/2021 Nausea Tuberculin Ppd Divya Test Swelling High 03/29/2021 Varicella-Zoster Virus Glycoprotein E, Recombinant Swelling High 03/29/2021 Medications aspirin 81 mg tablet Take 81 mg by mouth daily. Active cetirizine (ZYRTEC) 10 mg Oral Tablet Take 10 mg by mouth daily. Active DULoxetine (CYMBALTA) 60 mg Oral Capsule, Delayed Release(E.C.) Take 60 mg by mouth daily. Active gabapentin (NEURONTIN) 600 mg Oral Tablet Take 600 mg by mouth 4 times daily. Active Blood-Glucose Meter Misc Misc Use to test blood sugar 1-2 times daily. 1 Each 3 Active Blood Sugar Diagnostic (ACCU-CHEK GUIDE TEST STRIPS) Misc Strip USE TO TEST BLOOD SUGARS TWICE DAILY. 200 Each 3 4 Active Blood-Glucose Meter (ACCU-CHEK GUIDE GLUCOSE METER) Misc Misc Use to blood sugars twice daily. 1 Each 4 Active Lancets Misc Misc USE TO TEST BLOOD SUGARS TWICE DAILY. 200 Each 3 4 Active baclofen (LIORESAL) 10 mg Oral Tablet Take 10 mg by mouth 4 times daily. Active empagliflozin (JARDIANCE) 25 mg Oral TabletIndicatio ns:Type 2 diabetes mellitus with diabetic neuropathy, with long-term current use of insulin (HCC) Take 1 Tablet by mouth daily. 30 Tablet 11 4 Active ergocalciferol (VITAMIN D) 1,250 mcg (50,000 unit) Oral CapsuleIndicati ons:Vitamin D deficiency TAKE ONE CAPSULE BY MOUTH ON SUNDAY 12 Capsule 1 5 Active atorvastatin (LIPITOR) 20 mg Oral TabletIndicatio ns:Hyperlipidem ia associated with type 2 diabetes mellitus (HCC) TAKE ONE TABLET BY MOUTH EVERY EVENING 90 Tablet 1 5 Active pantoprazole (PROTONIX) 40 mg Oral Tablet, Delayed Release (E.C.) Take 40 mg by mouth every morning. Active senna (SENOKOT) 8.6 mg Oral Tablet 8.6 mg 2 times daily. Active ondansetron (ZOFRAN-ODT) 4 mg Oral Tablet, Rapid Dissolve Dissolve 4 mg by mouth every 8 hours as needed. 5 Active metoclopramide HCl (REGLAN) 5 mg Oral Tablet Take 5 mg by mouth. Active fluticasone propionate (FLONASE) 50 mcg/actuation Nasl [place], Suspension 1 [place] in each nostril daily. Active insulin glargine (LANTUS SOLOSTAR U-100 INSULIN) 100 unit/mL (3 mL) SubQ Insulin PenIndications: Type 2 diabetes mellitus with diabetic neuropathy, with long-term current use of insulin ([facility]) Up to 50 units/day 15 mL 5 5 Active Insulin [place], Disposable, (HARRY PEN NEEDLE) 32 gauge x [facility] NeedleIndicatio ns:Type 2 diabetes mellitus with diabetic neuropathy, with long-term current use of insulin ([facility]) Once a day 100 Each 3 5 Active Blood-Glucose Sensor (DEXCOM G7 SENSOR) [facility] DeviceIndicatio ns:Type 2 diabetes mellitus with diabetic neuropathy, with long-term current use of insulin ([facility]) 1 Each by [facility].(Non-John g; Combo Route) route every 10 days. 3 Each 11 5 Active hydroCHLOROthia zide 12.5 mg Oral Tablet Take 12.5 mg by mouth every morning. 5 Active morphine 2 mg/mL IV Syringe Inject 2 mg under the skin. Active nateglinide (STARLIX) 120 mg Oral TabletIndicatio ns:Type 2 diabetes mellitus with diabetic neuropathy, with long-term current use of insulin (HCC) Take 1 Tablet by mouth 3 times daily (with meals). 90 Tablet 6 5 Active semaglutide (OZEMPIC) 1 mg/dose (4 mg/3 mL) SubQ Pen InjectorIndicat ions:Type 2 diabetes mellitus with diabetic neuropathy, with long-term current use of insulin (HCC) Inject 1 mg under the skin once a week. 3 mL 6 5 Active glimepiride (AMARYL) 4 mg Oral TabletIndicatio ns:Type 2 diabetes mellitus with diabetic neuropathy, with long-term current use of insulin (HCC) Take 1 Tablet by mouth daily. 30 Tablet 6 5 06/17/20 25 Discontinu ed(Cancell ed by ) semaglutide 0.25 mg or 0.5 mg (2 mg/3 mL) SubQ Pen InjectorIndicat ions:Type 2 diabetes mellitus with diabetic neuropathy, with long-term current use of insulin (HCC) 0.25 mg once a week for 4 weeks then 0.5 mg once a week 6 mL 5 06/17/20 25 Discontinu ed(Reorder ) semaglutide 0.25 mg or 0.5 mg (2 mg/3 mL) SubQ Pen InjectorIndicat ions:Type 2 diabetes mellitus with diabetic neuropathy, with long-term current use of insulin (HCC) Inject 0.5 mg under the skin once a week. 6 mL 5 07/10/20 25 Discontinu ed(Dose adjustment ) Active Problems Problem Noted Date Diagnosed Date Goiter, nontoxic, multinodular 03/24/2024 Overview (07/02/2024): Bilateral biopsy in 2019 and 04/2024 Assessment & Plan (06/17/2025 3:42 PM EDT): Physical exam reveals stable bilobar nodule goiter. The patient is euthyroid clinically and biochemically. Continue to monitor for now Assessment & Plan (04/08/2025 4:11 PM EDT): Physical exam reveals stable bilobar nodule goiter. The patient is euthyroid clinically and biochemically. Continue to monitor for now Assessment & Plan (03/17/2025 7:31 AM EDT): Physical exam reveals stable bilobar nodule goiter. The patient is euthyroid clinically and biochemically. Continue to monitor for now Assessment & Plan (09/22/2024 3:39 PM EST): Physical exam reveals stable bilobar nodule goiter. The patient is euthyroid clinically and biochemically. Continue to monitor for now Assessment & Plan (07/02/2024 4:27 PM EDT): Physical exam reveals stable bilobar nodule goiter. The patient is euthyroid clinically and biochemically Assessment & Plan (03/25/2024 6:48 AM EDT): The patient has a longstanding history of bilobar nodule goiter. Will obtain the records from . She is to have thyroid ultrasound done to assure the anatomical stability. Obesity (BMI 30-39.9) 09/18/2023 Assessment & Plan (06/17/2025 3:45 PM EDT): She is to concentrate on dietary efforts Assessment & Plan (09/22/2024 3:39 PM EST): She is to concentrate on dietary aspects Assessment & Plan (03/25/2024 6:48 AM EDT): She is to concentrate on maintaining balanced and adequate caloric intake Assessment & Plan (12/18/2023 7:02 PM EDT): The patient has lost 33% of the total body weight over the time. She is to continue with semaglutide along with dietary intervention. She is to maintain balanced caloric intake Assessment & Plan (09/18/2023 2:07 PM EST): The patient has lost 15% of the total body weight. She is to continue with lifestyle intervention. Vitamin D deficiency 11/24/2022 Assessment & Plan (06/17/2025 3:45 PM EDT): Stable on vitamin D regimen Assessment & Plan (04/08/2025 4:11 PM EDT): Continue vitamin D supplement Assessment & Plan (03/17/2025 7:31 AM EDT): Continue vitamin D regimen Assessment & Plan (09/22/2024 3:39 PM EST): Continue vitamin D regimen Assessment & Plan (07/02/2024 4:23 PM EDT): Continue vitamin D supplement Assessment & Plan (03/25/2024 6:47 AM EDT): Stable on vitamin D regimen Assessment & Plan (12/18/2023 7:02 PM EDT): Stable on vitamin D regimen Assessment & Plan (09/18/2023 2:07 PM EST): Stable on vitamin D regimen Assessment & Plan (06/19/2023 11:40 AM EDT): Continue vitamin D Assessment & Plan (02/27/2023 4:56 PM EDT): Continue with vitamin D regimen Assessment & Plan (11/27/2022 3:24 PM EST): Continue vitamin D regimen Type 2 diabetes mellitus wit h diabetic neuropathy, with long-term current use of insulin 09/11/2022 Assessment & Plan (06/17/2025 3:45 PM EDT): Glycemic control has improved significantly. However the patient has significant postprandial variability and has experienced almost daily hypoglycemia. She was advised to continue 0.5 mg dose of Ozempic for now to see whether bloating subsides over the next 4 to 6 weeks. She was provided with samples We will discontinue glimepiride to avoid hypoglycemia Blood test results from [facility] were reviewed in detail Assessment & Plan (04/08/2025 4:10 PM EDT): Glycemic control has deteriorated off Mounjaro. The patient has been struggling with increased appetite. She is to retry Ozempic. She was provided with the samples and instructions on how to titrate Ozempic In the meantime she is to change to glimepiride response Insulin regimen was adjusted as well 04/08/2025 2:26 PM Insulin Dosing Basal Insulin Type lantus Basal Insulin - A.M. 0 Basal Insulin - P.M. 30 Assessment & Plan (03/17/2025 7:30 AM EDT): Glycemic control has tolerated off Mounjaro The patient would benefit from personal CGM. Will proceed with arrangements She is to add glipizide Insulin regimen was adjusted 03/09/2025 1:53 PM Insulin Dosing Basal Insulin Type lantus Basal Insulin - A.M. 0 Basal Insulin - P.M. 20 Assessment & Plan (09/22/2024 3:39 PM EST): Glycemic control has deteriorated. The patient just increased the dose of Ozempic up to 2 mg 2 weeks ago. Continue to monitor on current medication regimen for now Assessment & Plan (07/02/2024 4:23 PM EDT): Glycemic control is stable overall #1. The patient is to hold Ozempic for 1 week and then decrease Ozempic down to 1 mg a week counting clicks on 2 mg Ozempic pen She is notify me if nausea and vomiting do not subside while Ozempic is on hold She is to notify me whether dyspepsia persists on decreased dose of Ozempic #2. Will decide whether to adjust metformin dose in case of persistent dyspepsia Assessment & Plan (03/25/2024 6:47 AM EDT): Glycemic control continues to improve. The patient is to discontinue insulin to avoid hypoglycemia. She is to send glucose record to my attention in few weeks. Assessment & Plan (12/18/2023 7:01 PM EDT): Glycemic control continues to improve. Insulin regimen was adjusted to avoid hypoglycemia. The patient is to contact me in case of recurrent hypoglycemia 12/18/2023 2:22 PM Insulin Dosing Basal Insulin Type Basaglar Basal Insulin - P.M. 20 Assessment & Plan (09/18/2023 2:06 PM EST): Glycemic control remains stable. The patient is to discontinue glimepiride to hypoglycemia. She is to contact me in case of persistent hypoglycemia. Assessment & Plan (06/19/2023 11:40 AM EDT): Hemoglobin A1c is pending. Glimepiride was decreased to avoid hypoglycemia. We will decide on the need for additional intervention after hemoglobin A1c result becomes available. Assessment & Plan (02/27/2023 4:55 PM EDT): Glycemic control remains suboptimal. #1. We will increase Ozempic to optimize the response #2. The patient is to titrate basal insulin 02/27/2023 4:54 PM Insulin Dosing Basal Insulin Type Basaglar Basal Insulin - P.M. 30. Increase by 2 units nightly until FBS<110 Assessment & Plan (11/27/2022 3:23 PM EST): Glycemic control has improved significantly. #1. Continue to titrate Ozempic based on tolerability #2. Insulin was decreased to avoid hypoglycemia. The patient is to contact me in case of recurrent hypoglycemia 11/27/2022 3:17 PM Insulin Dosing Basal Insulin Type Basaglar Basal Insulin - P.M. 30 Assessment & Plan (09/12/2022 1:43 PM EST): Different aspects of diabetes care as well as treatment goals were discussed with the patient at length. Glycemic control has been suboptimal. #1. The patient is to increase frequency of blood glucose monitoring and send glucose record to my attention in 3 weeks #2. She is to change Tradjenta to Ozempic with gradual dose titration. #3. She is to add Jardiance the patient is to have a teaching session with a staff development educator. The patient is to be screened for diabetes related complications according to ADA guidelines. Hyperlipidemia associated with type 2 diabetes simi mcmillan 09/11/2022 Assessment & Plan (06/17/2025 3:43 PM EDT): Well-controlled on statin regimen Assessment & Plan (04/08/2025 4:10 PM EDT): Continue statin regimen Assessment & Plan (03/17/2025 7:31 AM EDT): Continue statin regimen Assessment & Plan (09/22/2024 3:39 PM EST): she is to have fasting lipid profile done prior to the next visit Assessment & Plan (07/02/2024 4:23 PM EDT): Continue to monitor on atorvastatin Assessment & Plan (03/25/2024 6:47 AM EDT): Stable on atorvastatin Assessment & Plan (12/18/2023 7:01 PM EDT): Stable on atorvastatin Assessment & Plan (09/18/2023 2:06 PM EST): She is to have fasting lipid profile done prior to next visit Assessment & Plan (06/19/2023 11:40 AM EDT): Continue statin regimen Assessment & Plan (02/27/2023 4:55 PM EDT): Continue to monitor on statin regimen Assessment & Plan (11/27/2022 3:23 PM EST): The patient is to have fasting lipid profile done prior to next visit Assessment & Plan (09/12/2022 1:43 PM EST): Continue to monitor on statin regimen Hypertension associated with type 2 diabetes saul litus 09/11/2022 Assessment & Plan (06/17/2025 3:43 PM EDT): Blood pressure is well controlled on a current medication regimen. The patient is to continue present medication regimen. Assessment & Plan (04/08/2025 4:10 PM EDT): Blood pressure is well controlled on a current medication regimen. The patient is to continue present medication regimen. Assessment & Plan (03/17/2025 7:31 AM EDT): The patient has experienced orthostatic symptoms. She is to hold benazepril for now Assessment & Plan (09/22/2024 3:39 PM EST): Blood pressure is well controlled on a current medication regimen. The patient is to continue present medication regimen. Assessment & Plan (07/02/2024 4:23 PM EDT): Blood pressure is well controlled on a current medication regimen. The patient is to continue present medication regimen. Assessment & Plan (03/25/2024 6:47 AM EDT): Blood pressure is well controlled on a current medication regimen. The patient is to continue present medication regimen. Assessment & Plan (12/18/2023 7:02 PM EDT): Blood pressure is well controlled on a current medication regimen. The patient is to continue present medication regimen. Assessment & Plan (09/18/2023 2:06 PM EST): Blood pressure is well controlled on a current medication regimen. The patient is to continue present medication regimen. Assessment & Plan (06/19/2023 11:40 AM EDT): Blood pressure is well controlled on a current medication regimen. The patient is to continue present medication regimen. Assessment & Plan (02/27/2023 4:56 PM EDT): The patient is to increase benazepril and contact me should blood pressure remain out of the target range Assessment & Plan (11/27/2022 3:23 PM EST): Blood pressure has been in the good range according to home blood pressure monitoring record. Continue to monitor on the current medication regimen Assessment & Plan (09/12/2022 12:49 PM EST): Blood pressure is well controlled on a current medication regimen. The patient is to continue present medication regimen. Resolved Problems Problem Noted Date Diagnosed Date Resolved Date Nontoxic goiter, unspecified 09/12/2022 02/27/2023 Assessment & Plan (09/12/2022 12:49 PM EST): The patient is euthyroid clinically. We will obtain thyroid function test to support the clinical impression. Class 3 severe obesity due t o excess calories with serious comorbidity and body mass index (BMI) of 40.0 to 44.9 in adult 09/12/2022 4 Assessment & Plan (06/19/2023 11:40 AM EDT): The patient is to concentrate on dietary aspects. She is to continue semaglutide Assessment & Plan (02/27/2023 4:56 PM EDT): She is to concentrate on lifestyle intervention Assessment & Plan (11/27/2022 3:24 PM EST): She is to concentrate on dietary aspects Assessment & Plan (09/12/2022 1:44 PM EST): The importance of increased physical activity and balanced caloric intake to facilitate weight loss was emphasized to the patient. The patient was provided with dietary instructions. The patient is to keep a detailed food diary and bring to the time of follow-up visit. Encounters Date Type Department Care Team Description 07/10/2025 Orders Only [facility] [place] [address] [id number] Lorna Maharaj MD Type 2 diabetes mellitus with diabetic neuropathy, with long-term current use of insulin (HCC) (Primary Dx) 06/24/2025 Orders Only [facility] [address] [place] [address] Lorna Maharaj MD Type 2 diabetes mellitus with diabetic neuropathy, with long-term current use of insulin (HCC) (Primary Dx) 06/17/2025 2:15 PM EDT Office Visit [facility] [place] [address] [facility] [address] [place] [address] Lorna Maharaj MD Type 2 diabetes mellitus with diabetic neuropathy, with long-term current use of insulin (HCC) (Primary Dx); Hypertension associated with type 2 diabetes mellitus (HCC); Hyperlipidemia associated with type 2 diabetes mellitus (HCC); Goiter, nontoxic, multinodular; Vitamin D deficiency; Obesity (BMI 30-39.9) from Last 3 Months Immunizations Immunization Administration Dates Next Due Moderna SARS-CoV-2 Bivalent Booster Vaccine 12+ Years (Sheldon Border) 08/25/2022 Surgical History Surgery Date Site/Laterality Comments TONSILLECTOMY ORTHOPEDIC SURGERY 04/22/2012 R shoulder ORTHOPEDIC SURGERY 1998 L knee ABDOMEN SURGERY 2002 ovaryan cyst removal Medical History Medical History Date Comments Diabetes mellitus (HCC) Social History Tobacco Use Types Packs/Day Years Used Date Smoking Tobacco: Never Smokeless Tobacco: Never Tobacco Cessation:Counseling Given: Not Answered Alcohol Use Standard Drinks/Week Comments No 0 (1 standard drink = 0.6 oz pur e alcohol) Comments No Sex and Gender Information Value Date Recorded Sex Assigned at Not on file Legal Sex Female 4:50 AM EDT Gender Identity Not on file Sexual Orientation Not on file Last Filed Vital Signs Vital Sign Reading Time Taken Comments Blood Pressure 118/68 06/17/2025 2:12 PM EDT Pulse 74 06/17/2025 2:12 PM EDT Temperature 36.7 C (98 F) 07/12/2012 12:41 PM EDT Respiratory Rate 16 07/02/2024 3:52 PM EDT Oxygen Saturation 97% 07/12/2012 2:29 PM EDT Inhaled Oxygen Concentration - - Weight 81.3 kg (179 lb 4.8 oz) 06/17/2025 2:12 P M EDT Height 157.5 cm (5' 2 ) 06/17/2025 2:12 PM EDT Body Mass Index 32.79 06/17/2025 2:12 PM EDT Plan of Treatment Upcoming Encounters Date Type Department Care Team (Late st Contact Info) Description 08/19/2025 1:00 PM EST [facility] [place] [address] [facility] [address] [place] [id number] Lorna Maharaj MD [address] [place] [address] Health Maintenance Due Date Last Done Comments Wellness Exam Medicare 1968 Cervical Cancer Screening 01/17/1988 Pap Smear 01/17/1988 HPV/Pap Cotest 1997 DTaP/TDaP/Td (1 - Tdap) 10/13/2006 10/12/2006 Breast Cancer Screening 2007 Cologuard 01/17/2012 Colon Cancer Screening 01/17/2012 Colonoscopy 01/17/2012 FIT 01/17/2012 Sigmoidoscopy 01/17/2012 Virtual Colonography 01/17/2012 Zoster (1 of 2) 2017 Pneumococcal Vaccine 50+ (2 of 2 - PPSV23, PCV20, or PCV21) 11/05/2017 09/10/2017 Diabetic Eye Exam 11/15/2024 11/15/2023, 10/16/2022 COVID-19 Vaccine ( season) 2025 08/25/2022, 02/04/2022, 01/25/2022 Influenza Vaccine (#1) 2025 3, 08/25/2022, 08/10/2021, Additional history exists Kidney Health: uACR 06/25/2025 06/25/2024, Hemoglobin A1c 12/14/2025 06/16/2025, 02/22, 09/22/2024, Additional history exists Kidney Health: eGFR 06/16/2026 06/16/2025, 06/19/2023, 02/27/2023 Lipids 06/16/2026 06/16/2025, 10/2023, 06/19/2023, Additional history exists Hepatitis B Vaccine Completed 08/04/1997, 03/04/1997, 01/28/1997 Meningococcal B Vaccine Aged Out No l onger eligible based on patient's age to complete this topic Procedures Procedure Name Priority Date/Time Associated Diagnosis Comments SCANNED LABS 07/01/2025 10:57 AM EDT CBC WITH DIFF Routine 06/16/2025 COMPREHENSIVE METABOLIC PANEL Routine 06/16/2025 LIPID PANEL REFLEX Routine 06/16/2025 HEMOGLOBIN A1C Routine 06/16/2025 VITAMIN D 25 HYDROXY Routine 06/16/2025 TSH REFLEX TO FT4 Routine 06/16/2025 MICROALBUMIN/CREATININ E RATIO URINE Routine 06/25/2024 HM DIABETES EYE EXAM Routine 11/15/2023 from Last 3 Months or Most Recently Relevant to Health Maintenance Results * SCANNED LABS (07/01/2025 10:57 AM EDT) 07/01/2025 10:5 7 AM EDT us Unknown Provider HEMATOLOGY ORDERABLES Final Res ult * LIPID PANEL REFLEX (06/16/2025) Cholesterol, Total 166 [facility] Triglyceride 75 40 - 160 MG/DL [facility] HDL Cholesterol 74 MG/DL [facility] VLDL 14 MG/DL [facility] LDL Cholesterol 78 MG/DL [facility] Blood VENOUS BLOOD / Unknown 06/16/2025 us Historical Provider CHEMISTRY ORDERABLES Final R esult [facility] * TSH REFLEX TO FT4 (06/16/2025) TSH 0.500 0.400 - 4.500 MCIU/ML [facility] Blood VENOUS BLOOD / Unknown 06/16/2025 Historical Provider CHEMISTRY ORDERABLES Final R esult [facility] * VITAMIN D 25 HYDROXY (06/16/2025) Vitamin D 25 OH 59.9 NG/ML [facility] Blood VENOUS BLOOD / Unknown 06/16/2025 Historical Provider CHEMISTRY ORDERABLES Final R esult [facility] * CBC WITH DIFF (06/16/2025) WBC 8.0 X10(3)/MCL [facility] Hemoglobin 13.3 G/DL [facility] Platelets 196 X10(3)/MCL [facility] RBC 4.69 4.00 - 5.20 X10(6)/MCL [facility] Hematocrit 42.8 % [facility] MCV 91.0 82.0 - 108.0 FL [facility]ICE MCH 28.4 26.0 - 34.0 PG SEP OFFICE MCHC 31 30 - 37 GM/DL SEP OFFICE RDW 12.3 11.5 - 14.5 % SE[facility]ICE Monocyte 8 % [facility] Eos 1 CELLS/UL [facility] Baso# 1 X10(3)/MCL [facility] Blood VENOUS BLOOD / Unknown 06/16/2025 Historical Provider HEMATOLOGY ORDERABLES Final Result [facility] * HEMOGLOBIN A1C (06/16/2025) Hgb A1C 6.6 [facility] Blood VENOUS BLOOD / Unknown 06/16/2025 Historical Provider CHEMISTRY ORDERABLES Final R esult [facility] * (ABNORMAL) COMPREHENSIVE METABOLIC PANEL (06/16/2025) Glucose, Bld 84 MG/DL [facility] BUN 19 4 - 21 MG/DL [facility] Creatinine 0.8 0.5 - 1.1 MG/DL [facility] EGFR 85.0 ML/MIN/1.7 3M2 [facility] BUN/Creatinine Ratio 24 [facility] Sodium 141 137 - 147 MMOL/L [facility] Potassium 3.8 3.4 - 5.3 MMOL/L [facility] Chloride 98(A) 99 - 108 MMOL/L [facility] CO2 27 MMOL/L [facility] Calcium 9.10 8.70 - 10.70 MG/DL [facility] Total Protein 6.7 6.4 - 8.2 GM/DL [facility] Albumin 3.9 GM/DL [facility] Globulin 2.8 G/DL(CALC) SE[facility] Alkaline Phosphatase 94 [facility] Total Bilirubin 0.3 0.1 - 1.4 MG/DL [facility] AST 19 13 - 35 IU/L [facility] ALT 14 7 - 35 IU/L [facility] Blood VENOUS BLOOD / Unknown 06/16/2025 Historical Provider CHEMISTRY ORDERABLES Final R esult Performing Organization Address [facility] Co de Phone Number SEP OFFICE * MICROALBUMIN/CREATININE RATIO URINE (06/25/2024) Albumin/Creat Ratio, Urine <9 [facility]P OFFICE Urine URINE SPECIMEN COLLECTION / Unknown 06/25/2024 Historical Provider URINE ORDERABLES Final Resul t Performing Organization Address City/[facility]/ZIP Co de Phone Number SEP OFFICE * HM DIABETES EYE EXAM (11/15/2023) Left Diabetic Retinopathy Not Present Present/Not Present [facility] Right Diabetic Retinopathy Not Present Present/Not Present [facility]ICE Historical Provider HEALTH MAINTENANCE Final Res ult Performing Organization Address [facility] Co de Phone Number SEP OFFICE from Last 3 Months or Most Recently Relevant to Health Maintenance Insurance [employer] MEDICARE PPO MR Care Teams Elevator Conductor Relationship Specialty Start Date End Date Deshaun Mason III, MD [address] [place] [address] PCP - General Family Medicine 09/12/22 Lorna Maharaj MD [facility] [place] [address] Consulting Physician Internal Medicine-Endocrinology, Diabetes & Metabolism 09/12/22
--- OUTSIDE RECORDS SUMMARY | 2025-07-10 12:21 | XMS_ITS | Encounter Summary ---
Author Organization [employer] ([place], [place], [place], [place]) Address [address] [place] [address] Care Team Providers Care Rating Officer Name Role Phone Unavailable Primary Care Provider Unavailabl e Encounter Details Date Type Department Care Team (Late st Contact Info) Description 09/06/2021 Transcribed Document [facility] [place] Family Medicine [facility] [place] [address] ProviderAlphonso MD [address] [place] [address] Social History Tobacco Use Types Packs/Day Years Used Date Smoking Tobacco: Never Assessed Comments Unknown Sex and Gender Information Value Date Recorded Sex Assigned at Female 03/21/2022 7:56 PM CDT Legal Sex Female 7:56 PM CDT Gender Identity Female 03/21/2022 7:56 PM CDT Sexual Orientation Not on file documented as of this encounter Miscellaneous Notes * Cerner Conversion Note - Alphonso Khalil MD - 09/06/2021 7:13 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 [place] [address] RUFUS JADE :1965 Visit Time:09/06/2021 Your Visit Summary Your Care Team Primary Provider: NICOLE WALTERS PA-C Secondary Provider: Your Diagnosis Headache, Headache Headache Medical Information You may obtain a copy of your Emergency Department visit from Medical Records by calling the hospital phone number listed above and asking to be directed to the Medical Records Department. If you had special tests, such as EKG???s or X-rays, the interpretation of your tests given to you by the Emergency Department Physician is a preliminary report. Some fractures and illnesses fail to show up on preliminary tests. These will be reviewed again and we will call you if there are any new suggestions. If your symptoms continue notify your physician. After you leave, you should follow the instructions provided. What to do next Follow-Up Appointments Follow Up with Patient Resource Flight Technician When Within 2 to 3 days Comments Call the Patient Resource Flight Technician at for assistance establishing care with a family doctor. Follow Up with ALEX CALLAWAY When Within 2 to 3 days Comments Neurology Where: [address] [facility] [address] [place] [phone] Business (1) Follow Up with JOSESITO PRICE When Within 2 to 3 days Comments Call to establish follow up appointment with neurology. Return to ED if symptoms worsen. Where: [address] [facility] [address] [place] [phone] [facility] (1) Follow Up with SANGEETA MONAHAN When Within 2 to 3 days Where: [address] [facility] [place] [phone] [facility] (1) Allergies No Known Allergies Immunizations This Visit No Immunizations Found Medications What How Much When Instructions Next Dose atorvastatin 40 Milligram(s) Oral At Bedtime benazepril (benazepril 10 mg oral tablet) 1 Tablet(s) Oral Every Day cetirizine (cetirizine 10 mg oral tablet) 1 Tablet(s) Oral Every Day FLUoxetine (PROzac 20 mg oral capsule) 1 Capsule(s) Oral Every Day glimepiride (Amaryl 4 mg oral tablet) 1 Tablet(s) Oral Every Day insulin glargine (Lantus) 35 Unit(s) SubCutaneous At Bedtime linaclotide (Linzess) 290 Microgram(s) Oral Every Day metFORMIN (metFORMIN 1000 mg oral tablet) 1 Tablet(s) Oral Two Times A Day naproxen (naproxen 500 mg oral tablet) 1 Tablet(s) Oral Two Times A Day phentermine (Adipex-P 37.5 mg oral capsule) 1 Capsule(s) Oral Every Day pregabalin (Lyrica 150 mg oral capsule) 1 Capsule(s) Oral Two Times A Day sitaGLIPtin (Januvia 100 mg oral tablet) 1 Tablet(s) Oral Every Day The home medications listed are only as accurate as the information you provided. Please continue taking all of your medications prescribed by your Primary Care Provider unless specifically told to change or discontinue the medication. Please direct any questions regarding your home medications to your Primary Care Provider. Take your medications faithfully. Do NOT skip medication. Do NOT stop taking medications without the direction of a physician. Carry a list of your medications with you at all times, and take this medication list with you to your first follow up visit. Report any side effects. Avoid herbal remedies unless discussed with your physician. As part of your treatment plan, your physician may have prescribed a limited course of a controlled substance. This medication may be given to help people with moderate or severe pain or for other medical conditions, but there are risks involved with treatment. Common side effects may include nausea, constipation, drowsiness, sweating, itching, dry mouth, and rash. More serious side effects may include cognitive and motor impairment, like problems with thinking, concentrating, alertness, and movement (e.g. slowed reflexes), and driving and operating heavy machinery can be dangerous. It is important for you to talk to your physician if you have these side effects or questions. These controlled substances can produce physical dependence and be habit-forming if taken for an extended period of time, which means that the body has gotten used to them and may experience withdrawal symptoms if they are abruptly stopped. Withdrawal symptoms can include runny nose, sweating, goose bumps, diarrhea, abdominal cramping, rapid heartbeat, difficulty sleeping, and nervousness. Please dispose of unused and medications per pharmacy guidance. Test Results Laboratory or Other Results This Visit (last charted value for your 09/06/2021 visit) Computed Tomography 09/06/2021 5:[address] Head WO: CT Head WO Education Materials Idiopathic Intracranial Hypertension Idiopathic intracranial hypertension (IIH) is a condition that increases pressure around the brain. The fluid that surrounds the brain and spinal cord (cerebrospinal fluid, or CSF) increases and causes the pressure. Idiopathic means that the cause of this condition is not known. IIH affects the brain and spinal cord (neurological disorder). If this condition is not treated, it can cause vision loss or blindness. What are the causes? The cause of this condition is not known. What increases the risk? The following factors may make you more likely to develop this condition: ??? Being very overweight (obese). ??? Being a female between the ages of 20 and 50 years old, who has not gone through menopause. ??? Taking certain medicines, such as control or steroids. What are the signs or symptoms? Symptoms of this condition include: ??? Headaches. This is the most common symptom. ??? Brief episodes of total blindness. ??? Double vision, blurred vision, or poor side (peripheral) vision. ??? Pain in the shoulders or neck. ??? Nausea and vomiting. ??? A sound like rushing water or a pulsing sound within the ears (pulsatile tinnitus), or ringing in the ears. How is this diagnosed? This condition may be diagnosed based on: ??? Your symptoms and medical history. ??? Imaging tests of the brain, such as: ? CT scan. ? MRI. ? Magnetic resonance venogram (MRV) to check the veins. ??? Diagnostic lumbar puncture. This is a procedure to remove and examine a sample of cerebrospinal fluid. This procedure can determine whether too much fluid may be causing IIH. ??? A thorough eye exam to check for swelling or nerve damage in the eyes. How is this treated? Treatment for this condition depends on the symptoms. The goal of treatment is to decrease the pressure around your brain. Common treatments include: ??? Weight loss through healthy eating, salt restriction, and exercise, if you are overweight. ??? Medicines to decrease the production of spinal fluid and lower the pressure within your skull. ??? Medicines to prevent or treat headaches. Other treatments may include: ??? Surgery to place drains (shunts) in your brain for removing excess fluid. ??? Lumbar puncture to remove excess cerebrospinal fluid. Follow these instructions at home: ??? If you are overweight or obese, work with your health care provider to lose weight. ??? Take igdd-kam-igtopcg and prescription medicines only as told by your health care provider. ??? Ask your health care provider if the medicine prescribed to you requires you to avoid driving or using machinery. ??? Do not use any products that contain nicotine or tobacco, such as cigarettes, e-cigarettes, and chewing tobacco. If you need help quitting, ask your health care provider. ??? Keep all follow-up visits as told by your health care provider. This is important. Contact a health care provider if: You have changes in your vision, such as: ??? Double vision. ??? Blurred vision. ??? Poor peripheral vision. Get help right away if: You have any of the following symptoms and they get worse or do not get better: ??? Headaches. ??? Nausea. ??? Vomiting. ??? Sudden trouble seeing. Summary ??? Idiopathic intracranial hypertension (IIH) is a condition that increases pressure around the brain. The cause is not known (is idiopathic). ??? The most common symptom of IIH is headaches. Vision changes, pain in the shoulders or neck, nausea, and vomiting may also occur. ??? Treatment for this condition depends on your symptoms. The goal of treatment is to decrease the pressure around your brain. ??? If you are overweight or obese, work with your health care provider to lose weight. ??? Take jljn-wut-qkmtthw and prescription medicines only as told by your health care provider. This information is not intended to replace advice given to you by your health care provider. Make sure you discuss any questions you have with your health care provider. Document Revised: 08/21/2020 Document Reviewed: 08/21/2020 [employer] Patient Education ?? 2020 School Admissions. Emergency Awareness and Preventative Care STROKE is an EMERGENCY Every Minute Counts Act FAST and Check for these signs: FACE Does the face look uneven? ARM Does one arm drift down? SPEECH Does their speech sound strange? TIME Call at any sign of stroke Stroke Risk Factors Atrial Fibrillation (irregular heartbeat) Diabetes Family history of stroke Heart Disease Heavy alcohol use High Blood Pressure High Cholesterol Physical inactivity and obesity Smoking Cigarette Smoking The facts are clear, cigarette smoking will shorten your life. Smoking can cause many illnesses along the way. As a healthcare provider, we recommend that you stop smoking. Assistance with quitting is available by contacting 4-513-SIBA-NOW. This is a free resource providing counseling, support, and referral. Or you may contact your personal physician. National Suicide Prevention Lifeline: The National Suicide Prevention Lifeline is a national network of local crisis centers that provides free and confidential emotional support to people in suicidal crisis or emotional distress 24 hours a day, 7 days a week. Don't Wait! Stop a Heart Attack Before it Starts What is a heart attack? A heart attack is damage or to a part of the heart from severely decreased or lack of blood flow to the heart. Over time, arteries can become narrow from the buildup of fat and cholesterol, which is called plaque. The plaque can rupture causing a blood clot to form. When the blood clot forms, the artery can become severely narrowed or completely blocked, causing a heart attack. Heart attack is the leading cause of in the [place]. 85% of muscle damage occurs within the first 2 hours. Delay in the recognition of heart attack symptoms increases the chances of . Know the early symptoms of a heart attack: Nausea Feeling of fullness in chest Jaw Pain Pain that travels down one or both arms Fatigue/being tired Anxiety Back Pain Chest pressure, squeezing, or discomfort Shortness of breath Sweating, or a cold sweat Feeling of impending doom There are unusual signs of a heart attack, too! Women, the elderly, and diabetics may present with atypical symptoms: Fainting/dizziness Weakness Confusion Risk Factors for a Heart Attack Some heart disease risk factors, such as age and family history, cannot be changed. Others, like smoking and lack of exercise, can be changed. Smoking High Cholesterol High Blood Pressure Family History Obesity Age Gender (Males are at higher risk) Lack of Exercise Diabetes Diet Stress Excessive Alcohol Intake If you or someone you know is experiencing the signs and symptoms of a heart attack, DON???T DELAY. Call immediately and seek help. If someone collapses, perform CPR! Do not attempt to drive if you are having symptoms of heart attack. Hands-Only CPR Why Hands-Only CPR? Hands-Only CPR has been shown to be as effective as conventional CPR for cardiac arrests that occur outside of a hospital. Survival depends on immediately receiving CPR from someone nearby. How do you perform Hands-Only CPR? There are two easy steps: Call if you see a teen or adult collapse Push hard and fast in the center of the chest at a beat of 100 beats per minute. Save a life! 4 WAYS TO GET AHEAD OF SEPSIS SEPSIS is a MEDICAL EMERGENCY. Time matters! Infections put you and your family at risk for a life-threatening condition called sepsis. Sepsis is the body's extreme response to an infection. It is life-threatening, and without timely treatment, sepsis can rapidly lead to tissue damage, organ failure, and . Sepsis happens when an infection you already have-in your skin, lungs, urinary tract or somewhere else-triggers a chain reaction throughout your body. 1 PREVENT INFECTIONS Take good care of chronic conditions. Talk to your doctor about getting the recommended vaccines. 2 PRACTICE GOOD HYGIENE Wash your hands frequently. Keep cuts or open sores clean and covered until they are healed. 3 KNOW THE SYMPTOMS Confusion or disorientation Shortness of breath High heart rate Fever, shivering, or feeling very cold Extreme pain or discomfort Clammy or sweaty skin 4 ACT FAST Get medical care IMMEDIATELY if you suspect sepsis or if you have an infection that is not getting better or is getting worse. To learn more about sepsis and how to prevent infections, visit www.cdc.gov/sepsis. The examination and treatment you have received in the Emergency Department has been done to provide an appropriate evaluation and stabilizing treatment on an emergency basis only. Given the limited resources, it is not meant to be a substitute for complete medical care. The follow-up doctor you named will receive a copy of your records and all test reports. IT IS IMPORTANT THAT YOU SCHEDULE A FOLLOW-UP APPOINTMENT AND ARE RE-EVALUATED. You should report any new complaints, symptoms, or remaining problems at that time. IT IS IMPOSSIBLE FOR THE EMERGENCY DEPARTMENT TO RECOGNIZE AND TREAT ALL ELEMENTS OF INJURY OR ILLNESS IN A SINGLE VISIT. If you have been referred to a specialist physician, it means that we believe you may have a condition that requires the expertise of a specialist. These physicians work in partnership with the hospital and have agreed to see referred patients in their office for further evaluation. KEEP IN MIND THAT THE SPECIALIST HAS HIS/HER OWN OFFICE POLICIES WHICH MAY REQUIRE PROPER INSURANCE OR PAYMENT UP FRONT BEFORE THE SPECIALIST WILL SEE YOU. It is your responsibility to call the specialist physician to make an appointment. We do not have the ability to refer patients to specialists/physicians that work with specific insurance companies. Please be advised that all financial charges or billing practices are determined by that practice, not the hospital. If your insurance company requires that you see a specialist from their approved list, it is your responsibility to contact your insurance company to make those arrangements. It is also your responsibility to follow any other requirements of your insurance company necessary to obtain coverage for claims submitted. We will bill your insurance; however, you are responsible today for any co-pay amounts. You will receive a separate bill for any services you may have received including: emergency, radiology, or pathology physicians. Patient Name:RUFUS JADE I have received this information and was given the opportunity to ask questions. Patient/Shipping Clerk Crating Name: Patient/Shipping Clerk Crating Signature: Relationship to Patient: Clinician/Hospital Shipping Clerk Crating Signature: Please Provide a Telephone Number Where You Can Be Reached: Is it Permissible To Leave a Message? Date: documented in this encounter Plan of Treatment Not on file documented as of this encounter Visit Diagnoses Not on filedocumented in this encounter
--- OUTSIDE RECORDS SUMMARY | 2025-07-10 12:21 | XMS_ITS | Encounter Summary ---
Author Organization [place] [address] Care Team Providers Care Irrigation Specialist Name Role Phone Lorna Maharaj MD Unavailable [phone] Isabella HERNANDEZ MD, Deshaun Wilson Primary Care P rovider Encounter Details Date Type Department Care Team (Late st Contact Info) Description 07/10/2025 Orders Only [facility] [place] [address] [place] [phone] Lorna Maharaj MD [address] [place] [address] Type 2 diabetes mellitus with diabetic neuropathy, with long-term current use of insulin (HCC) (Primary Dx) Social History Tobacco Use Types Packs/Day Years [...] on file documented as of this encounter Ordered Prescriptions Prescription Sig Dispense Quantity Refills Last Filled Start Date End Date semaglutide (OZEMPIC) 1 mg/dose (4 mg/3 mL) SubQ Pen InjectorIndications :Type 2 diabetes mellitus with diabetic neuropathy, with long-term current use of insulin (HCC) Inject 1 mg under the skin once a week. 3 mL 6 07/10/2025 documented in this encounter Plan of Treatment Upcoming Encounters Date Type Department Care Team (Late st Contact Info) Description 08/19/2025 1:00 PM EST [facility] [place] [place] [address] [place] [phone] Lorna Maharaj MD [address] [place] [address] documented as of this encounter Visit Diagnoses Diagnosis Type 2 diabetes mellitus with diabetic neuropathy, with long-term current use of insulin (HCC)- Primary documented in this encounter Discontinued Medications Medication Sig Discontinue Reason Start Date End Da te semaglutide 0.25 mg or 0.5 mg (2 mg/3 mL) SubQ Pen InjectorIndications:Type 2 diabetes mellitus with diabetic neuropathy, with long-term current use of insulin (HCC) Inject 0.5 mg under the skin once a week. Dose adjustment 06/17/2025 07/10/2025 documented as of this encounter Care Teams Irrigation Specialist Relationship Specialty Start Date End Date Deshaun Mason III, MD [address] [place] [phone] PCP - General Family Medicine 09/12/22 oLrna Maharaj MD [address] [place] [address] Consulting Physician Internal Medicine-Endocrinology, Diabetes & Metabolism 09/12/22 documented as of this encounter
--- OUTSIDE RECORDS SUMMARY | 2025-07-10 12:21 | XMS_ITS | Encounter Summary ---
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 Follow Up with ALEX CALLAWAY When Within 2 to 3 days Comments Neurology Where: [address] [facility] [address] [place] [phone] Business (1) Follow Up with JOSESITO PRICE When Within 2 to 3 days Comments Call to establish follow up appointment with neurology. Return to ED if symptoms worsen. Where: [address] [facility] [address] [place] [phone] [facility] (1) Follow Up with SANGEETA MONAHAN When Within 2 to 3 days Where: [address] [facility] [place] [phone] [facility] (1) Allergies No Known Allergies Immunizations [...] care provider to lose weight. ??? Take axza-ryr-yeoiswm and prescription medicines only as told by [...] care provider to lose weight. ??? Take hwmr-dsv-mfurbjm and prescription medicines only as told by your health care provider. This information is not intended to replace advice given to you by your health care provider. Make sure you discuss any questions you have with your health care provider. Document Revised: 08/21/2020 Document Reviewed: 08/21/2020 [employer] Patient Education ?? 2020 [employer]. Emergency Awareness and Preventative Care STROKE is [...] Assistance with quitting is available by contacting 8-765-CJMI-NOW. This is a free resource providing counseling, [...] was given the opportunity to ask questions. Patient/Hand Cigar Maker Name: Patient/Hand Cigar Maker Signature: Relationship to Patient: Clinician/Hospital Hand Cigar Maker Signature: Please Provide a Telephone Number Where You Can Be Reached: Is it Permissible To Leave a Message? Date: documented in this encounter Plan of Treatment Not on file documented as of this encounter Visit Diagnoses Not on filedocumented in this encounter
--- OUTSIDE RECORDS SUMMARY | 2025-07-10 12:21 | XMS_ITS | Encounter Summary ---
Author Organization [employer] ([place], [place], [place], [place]) Address [address] [place] [address] Care Team Providers Care Sales Project Engineer Name Role Phone Unavailable Primary Care Provider Unavailabl e Encounter Details Date Type Department Care Team (Late st Contact Info) Description 09/06/2021 Transcribed Document [facility] [place] [facility] [place] [address] ProviderAlphonso MD [address] [place] [address] Social History Tobacco Use Types Packs/Day Years Used Date Smoking Tobacco: Never Assessed Comments Unknown Sex and Gender Information Value Date Recorded Sex Assigned at Female 03/21/2022 7:56 PM CDT Legal Sex Female 7:56 PM CDT Gender Identity Female 03/21/2022 7:56 PM CDT Sexual Orientation Not on file documented as of this encounter Miscellaneous Notes * Cerner Conversion Note - Historical ProviderMD - 09/06/2021 3:30 PM ANTHROPOLOGIST [place] Suicide Severity Rating Scale (C-SSRS) Entered On: 09/06/2021 18:34 EST Performed On: 09/06/2021 18:29 EST by Melecio Maldonado RN-PATIENT CARE BEDSIDE NON-EXEMPT [place] Suicide Severity Rating Scale (C-SSRS) CSSRS Past Month Wish to be : No CSSRS Past Month Suicidal Thoughts : No CSSRS Lifetime Suicide Behavior : No Suicide Severity Rating Score : 0 Suicide Severity Rating : No Additional Care Required at this time Melecio Maldonado RN-PATIENT CARE BEDSIDE NON-EXEMPT - 09/06/2021 18:29 EST documented in this encounter Plan of Treatment Not on file documented as of this encounter Visit Diagnoses Not on filedocumented in this encounter
--- OUTSIDE RECORDS SUMMARY | 2025-07-10 12:21 | XMS_ITS | Clinical Summary ---
Author Organization Healthcare Address [address] [place] [address] Care Team Providers Care Verifying Machine Operator Name Role Phone Deshaun Mason MD Primary Care Provid er Allergies Active Allergy Reactions Criticality Noted Date Comments Exenatide Itching Medium 03/29/2021 Calcium Citrate Other - please docum ent in the comment field Low 03/29/2021 Nausea Zoster Vac Recomb Adjuvanted Swelling High 03/29/2021 Tuberculin Tests Swelling High 03/29/2021 Medications aspirin 81 MG EC tablet Take 81 mg by mouth 1 (one) time each day. Active benazepril (Lotensin) 10 MG tablet TAKE ONE TABLET BY MOUTH EVERY DAY 8 Active cetirizine (ZyrTEC) 10 MG tablet Take 10 mg by mouth 1 (one) time each day. 1 Active citalopram (CeleXA) 40 MG tablet Take 40 mg by mouth 1 (one) time each day. 1 Active glimepiride (Amaryl) 4 MG tablet Take 4 mg by mouth 1 (one) time each day. 1 Active Levemir FlexTouch 100 UNIT/ML injection INJECT 70 UNITS SUBCUTANEOUSLY DAILY 1 Active ketotifen (Alaway) 0.025 % ophthalmic solution INSTILL 1 DROP IN THE AFFECTED EYE(S) EVERY 12 HOURS NEEDED. 1 Active Tradjenta 5 MG tablet Take 5 mg by mouth 1 (one) time each day. 1 Active meloxicam (Mobic) 15 MG tablet 9 Active metFORMIN (Glucophage) 1000 MG tablet Take 1,000 mg by mouth 2 (two) times a day. 1 Active simvastatin (Zocor) 20 MG tablet Take 20 mg by mouth 1 (one) time each day. 1 Active Acetaminophen (TYLENOL 8 HOUR ARTHRITIS PAIN PO) 9 Active Menthol (Biofreeze) 10 % aerosol 9 Active gabapentin (Neurontin) 400 MG capsule Take 400 mg by mouth 3 (three) times a day. 1 Active rOPINIRole (Requip) 0.25 MG tablet Take 0.5 mg by mouth every night. 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 Polyneuropathy 06/05/2019 DDD (degenerative disc disease), cervical 2018 DDD (degenerative disc disease), lumbar 04/09/20 19 Lower back pain 04/09/2019 Hand numbness 04/07/2019 Neck pain 04/07/2019 MADDY positive 01/21/2019 Resolved Problems Problem Noted Date Diagnosed Date Resolved Date Left leg paresthesias 04/09/20192024 Family History Medical History Relation Name Comments COPD Father Conversions - Other Father History of open heart surgery Diabetes Father Eye Disorder Father Heart failure Father Diabetes Father's Sister Breast cancer Mother Conversions - Other Mother carcinom as Osteoarthritis Mother Thyroid disease Mother Alcohol abuse Sibling 1 Diabetes Sibling 2 Relation Name Status Comments Father Father's Sister Mother Sibling 1 Sibling 2 Social History Tobacco Use Types Packs/Day Years Used Date Smoking Tobacco: Never Smokeless Tobacco: Never Alcohol Use Standard Drinks/Week Comments No 0 (1 standard drink = 0.6 oz pur e alcohol) Comments Unknown Sex and Gender Information Value Date Recorded Sex Assigned at Not on file Legal Sex Female 8:48 PM EDT Gender Identity Not on file Sexual Orientation Not on file Last Filed Vital Signs Vital Sign Reading Time Taken Comments Blood Pressure 132/83 09/02/2021 10:04 AM EST Pulse 72 09/02/2021 10:04 AM EST Temperature 36.2 C (97.1 F) 09/02/2021 10:04 AM EST Respiratory Rate 16 09/02/2021 10:04 AM EST Oxygen Saturation 95% 07/26/2021 3:01 PM EDT Inhaled Oxygen Concentration - - Weight 121 kg (267 lb) 09/02/2021 10:04 AM EST Height 157.5 cm (5' 2 ) 09/02/2021 10:04 AM EST Body Mass Index 48.83 09/02/2021 10:04 AM EST Plan of Treatment Health Maintenance Due Date Last Done Comments [facility]-Depression Screening 1967 [facility]-/Child/Adol SDOH Screenings 1967 [facility]- SDOH Screenings 1985 [facility]-Adult SDOH Screenings 1985 [facility]-DTaP,Tdap,and Td Vaccine s (1 - Tdap) 1986 [facility]-Hepatitis B Vaccines (1 of 3 - 19+ 3-dose series) 1986 [facility]-Pap Smear 01/17/1988 [facility]-Cervical Cancer Screening 1997 [facility]-HPV/Cotest 1997 CT Colonography 01/17/2012 Colonoscopy 01/17/2012 FIT-DNA 01/17/2012 FIT 01/17/2012 FOBT 01/17/2012 Sigmoidoscopy 01/17/2012 [facility]-Colorectal Cancer Screening 01/17/2012 [facility]-Pneumococcal Vaccine: 50 + Years (1 of 1 - PCV) 2017 [facility]-Zoster Vaccines (1 of 2) 2017 CDA-INBUP-79 Vaccine (1 - 20 - season) 2025 [facility]-Influenza Vaccine (#1) 2025 08/10/2021 HPV Vaccines Aged Out No longer eligi ble based on patient's age to complete this topic [facility]-HIB Vaccines Aged Out No longer e ligible based on patient's age to complete this topic [facility]-Hepatitis A Vaccines Aged Out No longer eligible based on patient's age to complete this topic [facility]-IPV Vaccines Aged Out No longer e ligible based on patient's age to complete this topic [facility]-Rotavirus Vaccines Aged Out No lo nger eligible based on patient's age to complete this topic Insurance [facility] MEDICAID Care Teams Verifying Machine Operator Relationship Specialty Start Date End Date Deshaun Mason MD [address] [place] [address] PCP - General 02/04/21
--- OUTSIDE RECORDS SUMMARY | 2025-07-10 12:21 | XMS_ITS | Encounter Summary ---
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
--- OUTSIDE RECORDS SUMMARY | 2025-07-10 12:21 | XMS_ITS | Encounter Summary ---
Author Organization [facility] [place] [address] Care Team Providers Care Customer Sales Specialist Name Role Phone Lorna Maharaj MD Unavailable [phone] Isabella HERNANDEZ MD, Deshaun Wilson Primary Care P rovider Encounter Details Date Type Department Care Team (Late st Contact Info) Description 06/24/2025 Orders Only SE[facility] Diabetes [address] [address] Lorna Maharaj MD [address] [place] [address] Type 2 diabetes mellitus with diabetic neuropathy, [...] Refills Last Filled Start Date End Date nateglinide (STARLIX) 120 mg Oral TabletIndications:T ype 2 diabetes mellitus with diabetic neuropathy, with long-term current use of insulin (HCC) Take 1 Tablet by mouth 3 times daily (with meals). 90 Tablet 6 06/24/2025 documented in this encounter Plan of Treatment Upcoming Encounters Date Type Department Care Team (Late st Contact Info) Description 08/19/2025 1:00 PM EST [facility] [place] [place] [address] [facility] [address] [place] [address] Lorna Maharaj MD [address] [place] [address] documented as of this encounter Visit Diagnoses Diagnosis Type 2 diabetes mellitus with diabetic neuropathy, with long-term current use of insulin (HCC)- Primary documented in this encounter Care Teams Customer Sales Specialist Relationship Specialty Start Date End Date Deshaun Mason III, MD [address] [place] [address] PCP - General Family Medicine 09/12/22 Lorna Maharaj MD [address] [place] [address] Consulting Physician Internal Medicine-Endocrinology, Diabetes & Metabolism 09/12/22 documented as of this encounter
--- OUTSIDE RECORDS SUMMARY | 2025-07-10 12:21 | XMS_ITS | Encounter Summary ---
Author Organization [employer] ([place], [place], [place], [place]) Address [address] [place] [address] Care Team Providers Care Vocational Rehabilitation Consultant Name Role Phone Unavailable Primary Care Provider Unavailabl e Encounter Details Date Type Department Care Team (Late st Contact Info) Description 09/06/2021 Transcribed Document [facility] [place] Family [facility] [place] [address] ProviderAlphonso MD [address] [place] [address] Social History Tobacco Use Types Packs/Day Years Used Date Smoking Tobacco: Never Assessed Comments Unknown Sex and Gender Information Value Date Recorded Sex Assigned at Female 03/21/2022 7:56 PM CDT Legal Sex Female 7:56 PM CDT Gender Identity Female 03/21/2022 7:56 PM CDT Sexual Orientation Not on file documented as of this encounter Miscellaneous Notes * Cerner Conversion Note - Alphonso ProviderMD - 09/06/2021 5:14 PM OYSTER TONGER Pain Assessment Entered On: 09/06/2021 18:34 EST Performed On: 09/06/2021 18:29 EST by Melecio Maldonado RN-PATIENT CARE BEDSIDE NON-EXEMPT Intervention Information: ketorolac Performed by Melecio Maldonado RN-PATIENT CARE BEDSIDE NON-EXEMPT on 09/06/2021 17:42:00 EST ketorolac,30mg IV Push,Left Lower Forearm Pain Assessment Pain Assessment : Follow-up assessment Pain Scale Goal : 3 Pain Scale Used : 0-10 Scale Melecio Maldonado RN-PATIENT CARE BEDSIDE NON-EXEMPT - 09/06/2021 18:29 EST Pain Scale Intensity : 6 Melecio Maldonado RN-PATIENT CARE BEDSIDE NON-EXEMPT - 09/06/2021 18:29 EST Image 4 - Images currently included in the form version of this document have not been included in the text rendition version of the form. documented in this encounter Plan of Treatment Not on file documented as of this encounter Visit Diagnoses Not on filedocumented in this encounter
--- OUTSIDE RECORDS SUMMARY | 2025-07-10 12:21 | XMS_ITS | Encounter Summary ---
Author Organization [employer] ([place], [place], [place], [place]) Address [address] [place] [address] Care Team Providers Care Supervisor Fitting Name Role Phone Unavailable Primary Care Provider Unavailabl e Encounter Details Date Type Department Care Team (Late st Contact Info) Description 09/06/2021 Transcribed Document [facility] [place] [facility] [place] [address] ProviderAlphonso MD [address] [place] [address] Social History Tobacco Use Types Packs/Day [...] Conversion Note - Alphonso ProviderMD - 09/06/2021 3:30 PM ELECTROPHYSIOLOGY TECH ED Triage Entered On: 09/06/2021 15:59 EST Performed On: 09/06/2021 15:51 EST by DENNY ROJAS RN ED Triage Across the Room Chief Complaint : Pt recently dx with intracranial hypertension in July after MRI, unable to follow up with neuro until January. c/o increased pain that she cant control. started Diamox on 09/02 Triage Date/Time : 09/06/2021 15:51 EST DENNY ROJAS RN - 09/06/2021 15:51 EST DCP GENERIC CODE Tracking Acuity : 2 - Emergent Tracking Group : [facility] ED DENNY ROJAS RN - 09/06/2021 15:51 EST Mode of Arrival : Ambulatory Transported to ED by : Private vehicle To Room Via : Ambulate Accompanied By : Care provider ED Vital Signs : Document Height & Weight : Document ED Allergies : Document ED Reason for Visit : Document DENNY ROJAS RN - 09/06/2021 15:51 EST Infectious Disease History Does patient have symptoms of COVID-19? : No Has the Patient Been Tested for COVID-19 in the last 14 days? : No, Patient stated Does the Patient state known exposure to a COVID-19 positive case in the last 14 days? : No Patient Vaccinated for COVID-19 : Partially vaccinated or need booster Does Patient want a COVID-19 Vaccine? : No DENNY ROJAS RN - 09/06/2021 15:51 EST Infectious Disease Risk Screening Grid Cough < 2 wks of unknown origin : NO Cough > 2 weeks : NO Blood in Sputum : NO Fever or self-reported Fever : NO Rash of unknown origin : NO Headache : NO Stiff neck : NO Night Sweats : NO Unexplained Weight Loss : NO Diarrhea (3 episode per day) : NO DENNY ROJAS RN - 09/06/2021 15:51 EST Physical contact outside [place] in the last 30 days : No Hospitalized in Foreign Country : No Infectious Disease History : Chicken pox/Shingles INF Disease TB Screening Calc : 0 INF Disease Recent Travel Calc : 0 DENNY ROJAS RN - 09/06/2021 15:51 EST Vital Signs ED Temperature Source : Temporal artery scanning Temperature Mode : Fahrenheit Temperature, Fahrenheit : 97.8 Deg F ED Pain : Yes Clinical Temperature, C : 36.6 Deg C Oxygen Therapy Mode : Room air Peripheral Pulse Rate : 96 bpm Respiratory Rate : 18 Breaths/Min Systolic Blood Pressure : 144 mmHg (HI) Diastolic Blood Pressure : 87 mmHg Oxygen Saturation : 97 % DENNY ROJAS RN - 09/06/2021 15:51 EST Allergy (As Of: 09/06/2021 15:59:21 EST) Allergies (Active) No Known Allergies Estimated Onset Date: Unspecified ; Created By: ORTIZ ABDI RN; Reaction Status: Active ; Category: Drug ; Substance: No Known Allergies ; Type: Allergy ; Updated By: ORTIZ ABDI RN; Reviewed Date: 09/06/2021 15:57 EST Diagnosis Control ED (As Of: 09/06/2021 15:59:21 EST) Problems(Active) Allergic rhinitis (SNOMED CT :601838434 ) Name of Problem: Allergic rhinitis ; Recorder: ORTIZ ABDI RN; Confirmation: Confirmed ; Classification: Medical ; Code: [id number] ; Contributor System: PowerChart ; Last Updated: 06/14/2016 13:58 EDT ; Life Cycle Date: 06/14/2016 ; Life Cycle Status: Active ; Vocabulary: SNOMED CT Arthritis (SNOMED CT :9450779 ) Name of Problem: Arthritis ; Recorder: ORTIZ ABDI RN; Confirmation: Confirmed ; Classification: Medical ; Code: [id number] ; Contributor System: PowerChart ; Last Updated: 06/14/2016 14:02 EDT ; Life Cycle Date: 06/14/2016 ; Life Cycle Status: Active ; Vocabulary: SNOMED CT Back pain (SNOMED CT :679927740 ) Name of Problem: Back pain ; Recorder: ORTIZ ABDI RN; Confirmation: Confirmed ; Classification: Medical ; Code: [id number] ; Contributor System: PowerChart ; Last Updated: 06/14/2016 14:02 EDT ; Life Cycle Date: 06/14/2016 ; Life Cycle Status: Active ; Vocabulary: SNOMED CT Chest pain due to psychological stress (SNOMED CT :37039207 ) Name of Problem: Chest pain due to psychological stress ; Onset Date: 2010 ; Recorder: ORTIZ ABDI RN; Confirmation: Confirmed ; Classification: Medical ; Code: [id number] ; Contributor System: [employer] ; Last Updated: 02/21/2019 15:55 EDT ; Life Cycle Status: Active ; Vocabulary: SNOMED CT ; Comments: 02/21/2019 15:55 - MICHELLE ROMO RN hx of chest pain (normal heart cath)-diagnosed as stressed Diabetes mellitus type II (SNOMED CT :68616694 ) Name of Problem: Diabetes mellitus type II ; Recorder: ORTIZ ABDI RN; Confirmation: Confirmed ; Classification: Medical ; Code: [id number] ; Contributor System: PowerChart ; Last Updated: 06/14/2016 14:02 EDT ; Life Cycle Date: 06/14/2016 ; Life Cycle Status: Active ; Vocabulary: SNOMED CT Hyperlipidemia (SNOMED CT :97616159 ) Name of Problem: Hyperlipidemia ; Recorder: ORTIZ ABDI RN; Confirmation: Confirmed ; Classification: Medical ; Code: [id number] ; Contributor System: [employer] ; Last Updated: 06/14/2016 14:00 EDT ; Life Cycle Date: 06/14/2016 ; Life Cycle Status: Active ; Vocabulary: SNOMED CT PCO - Polycystic ovaries (hx of)-benign (SNOMED CT :246110612 ) Name of Problem: PCO - Polycystic ovaries (hx of)-benign ; Recorder: ORTIZ ABDI RN; Confirmation: Confirmed ; Classification: Medical ; Code: [id number] ; Contributor System: [employer] ; Last Updated: 06/14/2016 14:02 EDT ; Life Cycle Date: 06/14/2016 ; Life Cycle Status: Active ; Vocabulary: SNOMED CT Sinusitis (SNOMED CT :56172982 ) Name of Problem: Sinusitis ; Recorder: ORTIZ ABDI RN; Confirmation: Confirmed ; Classification: Medical ; Code: 78940753 ; Contributor System: [employer] ; Last Updated: 06/14/2016 13:58 EDT ; Life Cycle Date: 06/14/2016 ; Life Cycle Status: Active ; Vocabulary: SNOMED CT Diagnoses(Active) Headache Date: 09/06/2021 ; Diagnosis Type: Reason For Visit ; Confirmation: Complaint of ; Clinical Dx: Headache ; Classification: Medical ; Clinical Service: Non-Specified ; Code: PNED ; Probability: 0 ; Diagnosis Code: [id number] ED Height and Weight Height Source : Stated Height Entry Format : [place] Height, Feet : 5 ft(Converted to: 152 cm, 60 Inch) Height, Inches : 2 Inch(Converted to: 0 ft 2 Inch, 5.08 cm) Clinical Height : 157.48 cm Weight Source, ED : Critical estimated dosing weight Weight Entry Format : [place] Weight, Pounds : 161 lb Clinical Dosing Weight : 73.18 kg Body Surface Area (BSA) : 1.74 m2 Body Mass Index : 29.5 kg/m2 (HI) [place] Body Weight (IBW) : 49.73 kg DENNY ROJAS RN - 09/06/2021 15:51 EST Pain Assessment Pain Assessment : Initial assessment Pain Scale Used : 0-10 Scale DENNY ROJAS RN - 09/06/2021 15:51 EST Pain Scale Intensity : 10 DENNY ROJAS RN - 09/06/2021 15:51 EST Image 4 - Images currently included in the form version of this document have not been included in the text rendition version of the form. documented in this encounter Plan of Treatment Not on file documented as of this encounter Visit Diagnoses Not on filedocumented in this encounter
--- OUTSIDE RECORDS SUMMARY | 2025-07-10 12:21 | XMS_ITS | Encounter Summary ---
Author Organization [employer] ([place], [place], [place], [place]) Address [address] [place] [address] Care Team Providers Care Supervisor Steel Division Name Role Phone Unavailable Primary Care Provider Unavailabl e Encounter Details Date Type Department Care Team (Late st Contact Info) Description 09/06/2021 Transcribed Document [facility] [place] Family Medicine [facility]ly [facility] [place] [address] ProviderAlphonso MD [address] [place] [address] Social History Tobacco Use Types [...] Conversion Note - Historical ProviderMD - 09/06/2021 5:04 PM MECHANICAL INSULATOR Patient: RUFUS JADE Age: 56 years Sex: Female : 1965 Associated Diagnoses: Headache Author: NICOLE WALTERS PA-C Basic Information Time seen: Date 09/06/2021. History source: Patient. Arrival mode: Private vehicle. History limitation: None. Additional information: Chief Complaint from Nursing Triage Note : Chief Complaint 09/06/2021 15:51 EST Chief Complaint Pt recently dx with intracranial hypertension in July after MRI, unable to follow up with neuro until January. c/o increased pain that she cant control. started Diamox on 09/02 . History of Present Illness Patient is a 56 year old female with history of recently diagnosed IIH. Patient reports chronic headache that has been ongoing for months. Had an MRI in and was diagnosed with IIH. Patient reports she sees pain managment but has been unable to control headache over the past 3 days. Denies vision changes, fever, chills. Follows with neurologist Dr. oTny at . Review of Systems Constitutional symptoms: Negative except as documented in HPI. Skin symptoms: Negative except as documented in HPI. Eye symptoms: Negative except as documented in HPI. ENMT symptoms: Negative except as documented in HPI. Respiratory symptoms: Negative except as documented in HPI. Cardiovascular symptoms: Negative except as documented in HPI. Gastrointestinal symptoms: Negative except as documented in HPI. Genitourinary symptoms: Negative except as documented in HPI. Musculoskeletal symptoms: Negative except as documented in HPI. Neurologic symptoms: Negative except as documented in HPI. Health Status Allergies: Allergic Reactions (Selected) No Known Allergies. Medications: (Selected) Documented Medications Documented Adipex-P 37.5 mg oral capsule: 1 Cap, Oral, Daily, 0 Refill(s) Amaryl 4 mg oral tablet: 1 Tab, Oral, Daily, 30 Tab, 0 Refill(s) Januvia 100 mg oral tablet: 1 Tab, Oral, Daily, 30 Tab, 0 Refill(s) Lantus: 35 Units, SubCutaneous, At Bedtime, 0 Refill(s) Linzess: 290 mcg, Oral, Daily, 0 Refill(s) Lyrica 150 mg oral capsule: 1 Cap, Oral, BID, 60 Cap, 0 Refill(s) PROzac 20 mg oral capsule: 1 Cap, Oral, Daily, 30 Cap, 0 Refill(s) atorvastatin: 40 mg, Oral, At Bedtime, 0 Refill(s) benazepril 10 mg oral tablet: 1 Tab, Oral, Daily, 30 Tab, 0 Refill(s) cetirizine 10 mg oral tablet: 1 Tab, Oral, Daily, 30 Tab, 0 Refill(s) metFORMIN 1000 mg oral tablet: 1 Tab, Oral, BID, 60 Tab, 0 Refill(s) naproxen 500 mg oral tablet: 1 Tab, Oral, BID, 60 Tab, 0 Refill(s). Past Medical/ Family/ Social History Surgical history: \.br&TA in 1974 at 9 Years. right shoulder scope. left knee meniscus repair. heart cath (normal). D&C. cysts removed from ovary.. Family history: No family history items have been selected or recorded.. Social history: Social & Psychosocial Habits Alcohol 06/14/2016 Alcohol Use History, Social Habits No Substance Abuse 06/14/2016 Recreational Drug Use History No Recreational Drug Use Last 12 Months No Tobacco 06/14/2016 Smoking Status Never smoker . Problem list: Active Problems (8) Allergic rhinitis Arthritis Back pain Chest pain due to psychological stress Diabetes mellitus type II Hyperlipidemia PCO - Polycystic ovaries (hx of)-benign Sinusitis . Physical Examination Vital Signs Vital Signs/Vital Measures 09/06/2021 15:51 EST Systolic Blood Pressure 144 mmHg HI Diastolic Blood Pressure 87 mmHg Temperature Source Temporal artery scanning Temperature Mode Fahrenheit Temperature, Fahrenheit 97.8 Deg F Clinical Temperature, C 36.6 Deg C Peripheral Pulse Rate 96 bpm Respiratory Rate 18 Breaths/Min Oxygen Saturation 97 % Oxygen Therapy Mode Room air . Measurements 09/06/2021 15:51 EST Height Source Stated Height Entry Format [place] Height/Length, KOREAN (ft) 5 ft Height/Length KOREAN 2 Inch CLINICALHEIGHT 157.48 cm [place] Body Weight 49.73 kg Weight Source, ED Critical estimated dosing weight Weight Entry Format [place] Weight Armenian lb 161 lb CLINICALWEIGHT 73.18 kg Body Surface Area (BSA) 1.74 m2 Body Mass Index 29.5 kg/m2 HI . Oxygen Saturation 09/06/2021 15:51 EST Oxygen Saturation 97 % . General: Alert, no acute distress. Skin: Warm, dry. Head: Normocephalic, atraumatic. Eye: Pupils are equal, round and reactive to light, extraocular movements are intact, vision grossly normal, Retina, Red reflex: Bilaterally, present, Optic nerve: no papilledema. Cardiovascular: Regular rate and rhythm, No murmur. Respiratory: Lungs are clear to auscultation, respirations are non-labored, breath sounds are equal. Gastrointestinal: Soft, Nontender, Non distended, Normal bowel sounds. Medical Decision Making Documents reviewed: Emergency department nurses' notes. Radiology results: Radiology Results (Last 48 hours) [id number] -- 09/06/2021 15:30 CT Head WO (09/06/2021 17:54) Result: HEAD CT 09/06/2021 4:45 PM HISTORY: Worst headache of life.COMPARISON: None.TECHNIQUE: Multiple axial CT images were performed from the foramenmagnum to the vertex. Individualized dose reduction techniques usingautomated exposure control or adjustment of mA and/or kV according tothe patient size were employed.FINDINGS: The brain parenchyma is unremarkable. The ventricles areproper size. There is no evidence of hemorrhage. No masses areidentified. No abnormal extra-axial fluid is seen. The paranasal sinusesand mastoid air cells are unremarkable.IMPRESSION: No acute intracranial process.Images reviewed, interpreted, and dictated by Felisha Nash MD . Impression and Plan Diagnosis Headache - Discharge, Emergency medicine, Medical Plan Condition: Stable. Disposition: Discharged Admit/Transfer/Discharge: Discharge (Order): Start: 09/06/2021 18:47 EST, Discharge to: Home. Patient was given the following educational materials: Idiopathic Intracranial Hypertension, Idiopathic Intracranial Hypertension. Follow up with: ALEX TONY Within 2 to 3 days Neurology ; JOSESITO PRICE Within 2 to 3 days Call to establish follow up appointment with neurology. Return to ED if symptoms worsen.; SANGEETA MONAHAN Within 2 to 3 days; Patient Resource Commercial Airplane Pilot Within 2 to 3 days Call the Patient Resource Commercial Airplane Pilot at for assistance establishing care with a family doctor.. Counseled: Patient, Regarding diagnosis, Regarding diagnostic results, Regarding treatment plan, Patient indicated understanding of instructions. Notes: I certify that the Physician Warper Fixer performed the services as delegated. I agree with the assessment, treatment plan and disposition of the patient as recorded by the Physician Warper Fixer. This document was created with [employer] dictation software and unidentified development geologist errors may be present.. . documented in this encounter Plan of Treatment Not on file documented as of this encounter Visit Diagnoses Not on filedocumented in this encounter
--- OUTSIDE RECORDS SUMMARY | 2025-07-10 12:21 | XMS_ITS | Referral Summary ---
Author Organization [employer] ([place], [place], [place], [place]) Address [address] [place] [address] Care Team Providers Care Occupational Ther Name Role Phone Unavailable Primary Care Provider Unavailabl e Social History Tobacco Use Types Packs/Day Years Used Date Smoking Tobacco: Never Assessed Comments Unknown Sex and Gender Information Value Date Recorded Sex Assigned at Female 03/21/2022 7:56 PM CDT Legal Sex Female 7:56 PM CDT Gender Identity Female 03/21/2022 7:56 PM CDT Sexual Orientation Not on file Plan of Treatment Not on file
--- OUTSIDE RECORDS SUMMARY | 2025-07-10 12:21 | XMS_ITS | Encounter Summary ---
Author Organization [employer] ([place], [place], [place], [place]) Address [address] [place] [address] Care Team Providers Care Dispatcher Service Or Work Name Role Phone Unavailable Primary Care Provider Unavailabl e Encounter Details Date Type Department Care Team (Late st Contact Info) Description 09/06/2021 Transcribed Document [facility] [place] Family Medicine [facility] [place] [address] ProviderAlphonso MD [address] [place] [address] Social History Tobacco Use Types [...] - Alphonso ProviderMD - 09/06/2021 3:30 PM [facility] ED Assessment Entered On: 09/06/2021 18:34 EST Performed On: 09/06/2021 18:29 EST by Melecio Maldonado RN-PATIENT CARE BEDSIDE NON-EXEMPT ED Quick Look Assessment Level of Consciousness : Alert, Awake Affect/Behavior : Appropriate, Calm, Cooperative Orientation : Oriented x 4 Skin Description : Normal for ethnicity Melecio Maldonado RN-PATIENT CARE BEDSIDE NON-EXEMPT - 09/06/2021 18:29 EST ED General-Functional Assess Information Obtained From : Patient Preferred Communication Mode : Verbal Communication Barrier : None Primary Language : Malagasy Any Spiritual/Cultural Needs or Requests : No Currently in Unsafe Situation : No Melecio Maldonado RN-PATIENT CARE BEDSIDE NON-EXEMPT - 09/06/2021 18:29 EST Social Habits Smoking Status : Never (less than 100 in lifetime; none in last 30 days) Smokeless Tobacco Status : Never Desires Tobacco Cessation Calc : 0 Melecio Maldonado RN-PATIENT CARE BEDSIDE NON-EXEMPT - 09/06/2021 18:29 EST Social History (As Of: 09/06/2021 18:34:04 EST) Tobacco: Smoking Status Never smoker. (Last Updated: 06/14/2016 14:06:11 EDT by ORTIZ ABDI, RN) Alcohol: Alcohol Use History No. (Last Updated: 06/14/2016 14:06:16 EDT by ORTIZ ABDI, RN) Substance Abuse: Drug Use Hx: No. Use in Last 12 Months: No. (Last Updated: 06/14/2016 14:06:23 EDT by ORTIZ ABDI, RN) Cardiovascular ASMT, ED Cardiovascular Assessment WDL : WDL Cardiovascular Symptoms : None Melecio Maldonado RN-PATIENT CARE BEDSIDE NON-EXEMPT - 09/06/2021 18:29 EST Pulses Grid Radial Pulse, Left : 2+ normal Radial Pulse, Right : 2+ normal Melecio Mladonado RN-PATIENT CARE BEDSIDE NON-EXEMPT - 09/06/2021 18:29 EST Neurologic ASMT, ED Neurologic Assessment WDL : WDL with exceptions (Comment: pt c/o headache w/ pain 07/03 for several days. pt reports being dx w/ intracranial HTN in July. Pt states my doctor doesn't know what caused the intracranial htn so they sent me here to get some images of my brain . pt has sensitivity to light. pt denies numbness/tingling. [Melecio Maldonado RN-PATIENT CARE BEDSIDE NON-EXEMPT - 09/06/2021 18:29 EST] ) Neurological Symptoms : Headache Level of Consciousness : Alert, Awake Affect/Behavior : Appropriate, Calm, Cooperative Speech : Clear, Soft Orientation : Oriented x 4 Pupils Equal, Round, Reactive to Light : Yes Pupil Description, Left : Regular, Round Pupil Reaction, Left : Brisk Pupil Description, Right : Regular, Round Pupil Reaction, Right : Brisk Facial Symmetry : Symmetric Melecio Maldonado RN-PATIENT CARE BEDSIDE NON-EXEMPT - 09/06/2021 18:29 EST Electronically signed by [facility] Conversion Collator Hand Cerner at 01/10/2023 6:03 PM CDT documented in this encounter Plan of Treatment Not on file documented as of this encounter Visit Diagnoses Not on filedocumented in this encounter
--- OUTSIDE RECORDS SUMMARY | 2025-07-10 12:21 | XMS_ITS | Encounter Summary ---
Author Organization [employer] ([place], [place], [place], [place]) Address [address] [place] [address] Care Team Providers Care Weapons Mechanic Name Role Phone Unavailable Primary Care Provider Unavailabl e Encounter Details Date Type Department Care Team (Late st Contact Info) Description 09/06/2021 Transcribed Document [facility] [place] [facility] [place] [address] ProviderAlphonso MD [address] [place] [address] Social History Tobacco Use Types [...] Conversion Note - Historical ProviderMD - 09/06/2021 6:47 PM METHODS ANALYST DATA PROCESSING Electronically signed by Nuha [facility] Conversion Press Bucker Cerner at 01/10/2023 6:16 PM CDT documented in this encounter Plan of Treatment Not on file documented as of this encounter Visit Diagnoses Not on filedocumented in this encounter
--- OUTSIDE RECORDS SUMMARY | 2025-07-10 12:21 | XMS_ITS | Clinical Summary ---
Author Organization [email or web address] ([place], [place], [place], [place]) Address [address] [place] [address] Care Team Providers Care Hydraulic Strainer Operator Name Role Phone Unavailable Primary Care Provider [...]
--- OUTSIDE RECORDS SUMMARY | 2025-07-10 12:21 | XMS_ITS | Encounter Summary ---
Author Organization [employer] ([place], [place], [place], [place]) Address [address] [place] [address] Care Team Providers Care Restaurant Kitchen Manager Name Role Phone Unavailable Primary Care Provider Unavailabl e Encounter Details Date Type Department Care Team (Late st Contact Info) Description 09/06/2021 Transcribed Document [facility] [place] [facility] [place] [address] ProviderAlphonso MD [address] [place] [address] Social History Tobacco Use Types [...] Conversion Note - Historical ProviderMD - 09/06/2021 7:23 PM MANAGER FIBER ED Discharge Entered On: 09/06/2021 19:24 EST Performed On: 09/06/2021 19:23 EST by Ana King RN Discharge Process Patient Disposition : Discharge Personal Belongings With Patient : Yes Patient Education Completed : Yes Teaching Evaluation : Verbalizes understanding IV Discontinued : Yes Nursing Documentation Completed : Yes Ana King RN - 09/06/2021 19:23 EST ED Discharge Discharge To : Home with ambulatory/outpatient follow-up Mode Of Departure : Ambulatory Accompanied By : Responsible adult Discharge Instructions Reviewed With, Opportunity For Questions Given : Patient Prescriptions Given to Patient : No Ana King RN - 09/06/2021 19:23 EST Electronically signed by Nuha [facility] Conversion Cyanide Pot Tender Cerkayleen at 01/10/2023 6:02 PM CDT documented in this encounter Plan of Treatment Not on file documented as of this encounter Visit Diagnoses Not on filedocumented in this encounter
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
--- OUTSIDE RECORDS SUMMARY | 2025-07-10 12:21 | XMS_ITS | Encounter Summary ---
Author Organization Healthcare Address [address] [place] [address] Care Team Providers Care Handle Bender Name Role Phone Deshaun Mason MD Primary Care Provid er Encounter Details Date Type Department Care Team (Late st Contact Info) Description 01/12/2022 Community Orders Community [facility] [address] [place] [address] Vinita Blake, ANGI [address] [place] [id number] Other systemic lupus erythematosus with other organ involvement (CMS/HCC) (Primary Dx) Social History Tobacco Use Types [...] on file documented as of this encounter Plan of Treatment Not on file documented as of this encounter Visit Diagnoses Diagnosis Other systemic lupus erythematosus with other organ involvement (CMS/HCC)- Primary documented in this encounter Additional Health Concerns Assessment Noted Time A fall risk assessment has been complete d for the patient 09/02/2021 10:04 AM EST documented as of this encounter Care Teams Handle Bender Relationship Specialty Start Date End Date Deshuan Mason MD [address] [place], [place] [id number] PCP - General 02/04/21 documented as of this encounter
--- OUTSIDE RECORDS SUMMARY | 2025-07-10 12:22 | XMS_ITS | Data Portability ---
Author Organization [place] [facility] Address [address] [place] [address] Assessment Encounter Date Assessment Date Assessment LastModified by Organization Details LastModified Time 12/13/2023 12/13/2023 This patient had refill of her intrathecal morphine pain pump today. She does have antalgic gait. Motor strength of lower extremities is 5/5. There is no gross sensory deficit. Eric and drug screen are all appropriate. She is having some increasing pain. We did increase her infusion today to 0.3 mg/day. PTM boluses were increased to 0.03 mg up to 4 times a day.Her pump was flipped so we did flip it under fluoroscopy. She is under the care of [facility] home health refill. We did do her 6-month follow-up today. We went over her symptoms and medications. Her home health refill nurse was present. She will be fills by [facility] her refill dates on or before January 25, 2024. We will follow-up with her in 6 months to reevaluate symptoms. In the meantime we will manage her symptoms through the [facility] home health nurse. abux Not available 12/13/2023 21:55:56 07/21/2024 07/21/2024 This patient had refill of her intrathecal pain pump done today. She is having some increasing pain so we did increase her to 0.4 mg/Day. She does have antalgic gait. Eric and drug screen are all appropriate. Motor strength of lower extremities is 5/5. There is no gross sensory deficit. She was under home health refill. We are taking over her refills today. She did undergo a random urine drug screen. We will see her back at her next pump refill. This to be on or before September 23, 2024. abux Not available 07/21/2024 20:15:52 10/06/2024 10/06/2024 This patient had refill of her intrathecal morphine pain pump done today. Her pain pump was flipped today. We did flip it back under fluoroscopy guidance. She does have an antalgic gait. Motor strength of lower extremities is 5/5. There is no gross sensory deficit. Eric and drug screen are all appropriate. She is having some increasing pain we did increase her to 0.5 mg/day. This was a 25% increase. Will follow-up with her nurse and [facility] office. Her refill needs to be on before November 26, 2024.Patient did have a random urine drug screen done today. abux Not available 10/06/2024 13:35:48 Plan of Treatment Reminders Order Date Submit Date Provider Last Modified By Organization Details Last Modified Time Details Appointments None recorded. Lab None recorded. Referral None recorded. Procedures intrathecal pump refill (PROC) 2023 024 [email or web address] Not available 08:25:32 Surgeries None recorded. Imaging None recorded. Medication Orders None recorded. Patient TargetsNo targets recorded. Patient InstructionsNo instructions recorded. Reason for Referral None Reported. Results Created Date Observation Date Name Description Value Unit Range Abnormal Flag Note LastModifiedBy Organization Detail LastModifiedTime Result Notes None recorded. Problems Name Problem SNOMED Code Status Onset Date Resolution Date Notes Provider Name and Address Organization Details Recorded Time Neck pain 65794216 Active 2023 Aaron Bhatt MD [address] [facility], [address], [place] [facility] 4 21:55:04 Degeneratio n of lumbar interverteb ral disc 38441695 Active 2023 Aaron Bhatt MD [address] [facility],[address], [address], [place] [facility] 4 21:55:05 Lumbar radiculopat hy 528244023 Active 2023 Aaron Bhatt MD [address] [facility],[address], [address], [place] [facility] 4 21:55:06 Lumbar spondylosis 465792877 Active 2023 Aaron Bhatt MD [address] [facility], [address], [place] [facility] 4 21:55:08 Degeneratio n of cervical interverteb ral disc 78125500 Active 2023 Aaron Bhatt MD [address] [facility], [address], [place] [facility] 4 21:55:10 Cervical radiculopat hy 17585042 Active 2023 Aaron Bhatt MD [address] [facility], [address], [place] [facility] 21:55:12 Long-term current use of opiate analgesic drug 4615576034470 08 Active 2023 Aaron Bhatt MD [address], [address], [place] [facility] 20:16:23 Continuous opioid dependence 180471261 Active 2024 Aaron Bhatt MD [address] [facility],[address], [address], [place] [facility] 13:35:19 Problem Notes None recorded. Procedures Surgical History Date Name Laterality Status Provider Name and Address Organization Details Recorded Time 10/06/2024 Pump Refill completed Aaron Bhatt MD [address], [address], [place] [facility] 10/06/2024 13:32:41 07/21/2024 Pump Refill completed Aaron Bhatt MD [address], [address], [place] [facility] 07/21/2024 20:14:58 12/13/2023 Pump Refill completed Aaron Bhatt MD [address] [facility],[address], [address], [place] [facility] 12/13/2023 21:52:26 Imaging Results None recorded. Procedure Notes None recorded. Medical Equipment None Reported. Allergies Allergen ID Allergen Name Allergen Category Reaction Reaction Severity Criticality Documentation Date Start Date Code Code System Note Provider Name and Address Organization Details Recorded Time 4668 Byetta medicatio n Not available Not available Not available 12/13/2023 73482 1 RxNorm Raya Marshall null, [place] [facility] 4 12:14:20 4669 purified protein derivativ e of tuberculi n medicatio n Not available Not available Not available 12/13/2023 8948 RxNorm Raya Marshall null, [place] [facility] 4 12:14:37 4670 Shingrix medicatio n Not available Not available Not available 12/13/2023 67508 26 RxNorm Raya Marshall null, [place] [facility] 4 12:14:45 Medications Name Sig Start Date Stop Date Status Note LastModified by Organization Details LastModified Time morphine 2 DISPENSE IN 20 ML FOR INTRATHEC AL INFUSION 2023 active Not Available Not Available Not Avai lable morphine 2 DISPENSE IN 20 ML FOR INTRATHEC AL INFUSION 2023 active Not Available Not Available Not Avai lable morphine 2 DISPENSE IN 20 ML FOR INTRATHEC AL INFUSION 2024 active Not Available Not Available Not Avai lable morphine 2 DISPENSE IN 20 ML FOR INTRATHEC AL INFUSION 2023 active Not Available Not Available Not Avai lable morphine 2 DISPENSE IN 20 ML FOR INTRATHEC AL INFUSION 2023 active Not Available Not Available Not Avai lable morphine 1 dispense 20 ml to infuse through intrathec al pump 06/20 completed Not Available Not Available Not Available amoxicillin 500 mg capsule TAKE FOUR CAPSULES BY MOUTH one full prior TO dental appointme nt 07/21 completed Not Available Not Available Not Available prednisone 10 mg tablet TAKE THREE TABLETS BY MOUTH DAILY FOR 3 DAYS, THEN TWO tablets DAILY FOR 3 DAYS, THEN one tablet DAILY FOR 3 DAYS 07/21 completed Not Available Not Available Not Available gabapentin 600 mg tablet TAKE ONE TABLET BY MOUTH FOUR TIMES DAILY active Not Available Not Available No t Available atorvastati n 20 mg tablet TAKE ONE TABLET BY MOUTH EVERY DAY active Not Available Not Available No t Available citalopram 40 mg tablet Take 1 tablet by mouth daily 07/21 completed Not Available Not Available Not Available azithromyci n 250 mg tablet TAKE 2 TABLETS BY MOUTH ON DAY 1, THEN TAKE 1 TABLET DAILY ON DAYS 2-5 07/21 completed Not Available Not Available Not Available acetazolami de ER 500 mg capsule,ext ended release TAKE ONE CAPSULE BY MOUTH TWICE DAILY FOR 7 DAYS active Not Available Not Available No t Available nystatin 100,000 unit/gram topical ointment APPLY TO THE AFFECTED AREA(S) TWICE DAILY active Not Available Not Available No t Available fluconazole 150 mg tablet TAKE ONE TABLET BY MOUTH FOR THREE DAYS 07/21 completed Not Available Not Available Not Available meloxicam 15 mg tablet TAKE ONE TABLET BY MOUTH EVERY DAY active Not Available Not Available No t Available gabapentin 400 mg capsule TAKE ONE CAPSULE BY MOUTH FOUR TIMES DAILY 07/21 completed Not Available Not Available Not Available Accu-Chek Softclix Lancets USE TO test blood sugar TWICE DAILY active Not Available Not Available No t Available penicillin V potassium 500 mg tablet Take 1 tablet by mouth four times a day; Take until entire Rx is finished. 07/21 completed Not Available Not Available Not Available sulfamethox azole 800 mg-trimetho prim 160 mg tablet TAKE ONE TABLET BY MOUTH TWICE DAILY 07/21 completed Not Available Not Available Not Available peg-electro lyte solution 420 gram oral solution Take as directed per Dr. Lopez's office. 07/21 completed Not Available Not Available Not Available tramadol 50 mg tablet TAKE TWO TABLETS BY MOUTH EVERY 6 HOURS NEEDED 07/21 completed Not Available Not Available Not Available amoxicillin 500 mg tablet TAKE ONE TABLET BY MOUTH TWICE DAILY active Not Available Not Available No t Available metoclopram kody 5 mg tablet 07/21 completed Not Available Not Available Not Available ropinirole 0.25 mg tablet TAKE TWO TABLETS BY MOUTH AT BEDTIME 07/21 completed Not Available Not Available Not Available baclofen 10 mg tablet TAKE ONE TABLET BY MOUTH EVERY 6 HOURS active Not Available Not Available No t Available cephalexin 500 mg capsule TAKE ONE CAPSULE BY MOUTH THREE TIMES DAILY active Not Available Not Available No t Available simvastatin 20 mg tablet TAKE ONE TABLET BY MOUTH EVERY DAY 07/21 completed Not Available Not Available Not Available metformin 1,000 mg tablet TAKE ONE TABLET BY MOUTH TWICE DAILY active Not Available Not Available No t Available nystatin 100,000 unit/gram topical cream APPLY TO THE AFFECTED AREA(S) THREE TIMES DAILY 07/21 completed Not Available Not Available Not Available glimepiride 4 mg tablet TAKE ONE TABLET BY MOUTH DAILY 07/21 completed Not Available Not Available Not Available indomethaci n 25 mg capsule TAKE ONE CAPSULE BY MOUTH TWICE DAILY with food active Not Available Not Available No t Available Senna Laxative 8.6 mg tablet TAKE ONE TABLET BY MOUTH TWICE DAILY NEEDED 07/21 completed Not Available Not Available Not Available benazepril 20 mg tablet Take 1 Tablet by mouth daily. active Not Available Not Available No t Available insulin syringe U-100 with needle 1 mL 31 gauge x 02/06 USE with levemir injection s 07/21 completed Not Available Not Available Not Available mupirocin 2 % topical ointment APPLY TO THE AFFECTED AREA(S) THREE TIMES DAILY active Not Available Not Available No t Available Vitamin D2 1,250 mcg (50,000 unit) capsule TAKE ONE CAPSULE BY MOUTH ONCE a WEEK active Not Available Not Available No t Available benazepril 10 mg tablet TAKE ONE TABLET BY MOUTH EVERY DAY 07/21 completed Not Available Not Available Not Available fluticasone propionate 50 mcg/actuati on nasal spray,suspe nsion SPRAY one SPRAY in each nostril DAILY active Not Available Not Available No t Available amoxicillin 875 mg-potassiu m clavulanate 125 mg tablet TAKE ONE TABLET BY MOUTH TWICE DAILY active Not Available Not Available No t Available Ventolin HFA 90 mcg/actuati on aerosol inhaler INHALE TWO puffs BY MOUTH EVERY 4 HOURS NEEDED 07/21 completed Not Available Not Available Not Available Senna Plus 8.6 mg-50 mg tablet TAKE ONE TABLET BY MOUTH TWICE DAILY NEEDED active Not Available Not Available No t Available ketorolac 0.4 % eye drops STARTING THREE DAYS BEFORE surgery place ONE DROP into operative eye FOUR TIMES DAILY FOR 10 DAYS THEN decrease TO TWICE DAILY FOR FOURTEEN DAYS 07/21 completed Not Available Not Available Not Available duloxetine 30 mg capsule,del ayed release TAKE ONE CAPSULE BY MOUTH DAILY 07/21 completed Not Available Not Available Not Available duloxetine 60 mg capsule,del ayed release TAKE ONE CAPSULE BY MOUTH DAILY active Not Available Not Available No t Available Flovent HFA 110 mcg/actuati on aerosol inhaler Inhale 1 puff twice a day by mouth for 30 days. 07/21 completed Not Available Not Available Not Available Nyamyc 100,000 unit/gram topical powder ONE applicati on TWICE DAILY DIRECTED PER package 07/21 completed Not Available Not Available Not Available Levemir U-100 Insulin 100 unit/mL subcutaneou s solution INJECT 70 UNITS SUBCUTANE OUSLY EVERY DAY 07/21 completed Not Available Not Available Not Available Symbicort 160 mcg-4.5 mcg/actuati on HFA aerosol inhaler Inhale TWO puffs BY MOUTH TWICE DAILY 07/21 completed Not Available Not Available Not Available Allergy Relief (cetirizine ) 10 mg tablet TAKE ONE TABLET BY MOUTH DAILY active Not Available Not Available No t Available BD Ultra-Fine Maribel Pen Needle 32 gauge x /32 USE DIRECTED EVERY DAY active Not Available Not Available No t Available Tradjenta 5 mg tablet Take 1 tablet by mouth daily 07/21 completed Not Available Not Available Not Available Levemir FlexTouch U-100 Insulin 100 unit/mL (3 mL) subcutaneou s pen INJECT 30 UNITS UNDER THE SKIN DAILY 07/21 completed Not Available Not Available Not Available Jardiance 25 mg tablet Take ONE Tablet by MOUTH daily active Not Available Not Available No t Available Basaglar KwikPen U-100 Insulin 100 unit/mL (3 mL) subcutaneou s INJECT UP TO 50 units UNDER THE SKIN PER DAY active Not Available Not Available No t Available Accu-Chek Guide test strips USE TO test blood sugars TWICE DAILY active Not Available Not Available No t Available Accu-Chek Guide Glucose Meter USE TO test blood sugar 1-2 times daily active Not Available Not Available No t Available Synjardy XR 12.5 mg-1,000 mg tablet, extended release Take 2 Tablets by mouth daily. active Not Available Not Available No t Available OneTouch Delica Plus Lancet 33 gauge USE DIRECTED THREE TIMES DAILY 07/21 completed Not Available Not Available Not Available Stool Softener-St imulant Laxative 8.6 mg-50 mg capsule Take ONE (one) CAPSULE by MOUTH two times daily, as needed active Not Available Not Available No t Available Ozempic 1 mg/dose (4 mg/3 mL) subcutaneou s pen injector inject 1mg UNDER THE SKIN ONCE a WEEK 07/21 completed Not Available Not Available Not Available Ozempic 2 mg/dose (8 mg/3 mL) subcutaneou s pen injector inject 2mg under the skin ONCE a WEEK active Not Available Not Available No t Available Vitals Date Recorded Body height Body mass index (BMI) Body weight Heart rate Oxygen saturation Oxygen saturation in Arterial blood by Pulse oximetry Pain severity - 0-10 verbal numeric rating [Score] - Reported Systolic And Diastolic Provider Name and Address Organization Details Last Updated DateTime 5 157.48 cm 26.7 kg/m2 76963.4 9 g 78 /min 98 % 98 % 4 118/66 mm[Hg] [facility] [place] [facility] 5 12:52:18 Date Recorded Body height Body mass index (BMI) Body weight Oxygen saturation Oxygen saturation in Arterial blood by Pulse oximetry Heart rate Pain severity - 0-10 verbal numeric rating [Score] - Reported Systolic And Diastolic Provider Name and Address Organization Details Last Updated DateTime 4 157.48 cm 26.7 kg/m2 08446.4 9 g 98 % 98 % 78 /min 7 116/64 mm[Hg] [facility] [place] [facility] 4 15:21:09 Social History Question Answer Notes LastModified by Organizat ion Details LastModified Time Tobacco Smoking Status Never Smoker Raya Haideryudi zacarias, [place] [facility] 12/13/2023 12:16:27 Do You Have An Advance Directive? Yes [email or web address] Information n ot available 12/13/2023 In The 14 Days Before Symptom Onset, Have You Had Close Contact With A Laboratory-confirm ed COVID-19 While That Case Was Ill? No [email or web address] Information n ot available 07/21/2024 In The 14 Days Before Symptom Onset, Have You Had Close Contact With A Person Who Is Under Investigation For COVID-19 While That Person Was Ill? No [email or web address] Information not available 07/21/2024 Have You Been To An Area Known To Be High Risk For COVID-19? No [email or web address] Information not available 07/21/2024 Do You Have A Medical Power Of Fire Management Specialist? Yes [email or web address] Information not available 12/13/2023 Sex: Unknown Functional Status Question Answer Note LastModified by Organizat ion Details LastModified Time Do you use any illicit or recreational drugs? No [email or web address] Information not available 12/13/2023 Do you or have you ever used any other forms of tobacco or nicotine? No [email or web address] Information not available 12/13/2023 What is your level of alcohol consumption? None [email or web address] Information not available 12/13/2023 Are you currently employed? No [email or web address] Information not available 12/13/2023 Mental Status None recorded. Family History Nothing Reported. Medical History Condition Response Coronary Artery Disease N Gout N Hernia N Head Trauma/Injury N Thyroid Problems Y Depression Y COPD N Anemia N Heart Attack (OK) N Ulcers N Diabetes Y Anxiety Disorder N Bleeding Disorder N Arthritis Y Tuberculosis N AIDS/HIV N Acid Reflux (GERD) N Cancer N Stroke N Asthma Y Substance Abuse N Back Injury N High Cholesterol Y Hepatitis N Liver Disease N Heart Disease N Headaches Y Fibromyalgia N Hypertension Y Osteoporosis N Kidney Disease N Gynecological HistoryNo gynecological history recorded. Obstetrics History GPAL:G 0 P 0 0 0 0 Past Encounters Encounter ID Performer Location Encounter Start Date Encounter Closed Date Diagnosis/Indication Diagnosis SNOMED-CT Code Diagnosis ICD10 Code Diagnosis IMO Codes Diagnosis Note [id number] MD Jose [address] DR [place] [address] [place] [id number] 12/13/2023 11:10:01 12/13/2023 13:10:31 Neck pain 39740252 M54.2 Degenerati on of lumbar intervertebral disc 55228326 M51.36 Lumbar radiculopathy 128 M54.16 Lumbar spondylosis 87098 0009 M47.896 Degenerati on of cervical intervertebral disc 81441339 M50.30 Cervical radiculopathy 26661243 M54.12 [id number] MD Radha Shen [address] [place] [address] [place] [id number] 07/21/2024 14:43:09 07/21/2024 16:59:31 Lumbar spondylosis 736997794 M47.896 Lumbar radiculopathy 128 428116 M54.16 Degenerati on of lumbar intervertebral disc 74331715 M51.362 Cervical radiculopathy 59351212 M54.12 Degenerati on of cervical intervertebral disc 84988634 M50.30 Neck pain 64049751 M54.2 Long-term current use of opiate analgesic drug 1463000944 92511 Z79.891 [id number] Aaron Bhatt MD [address] [place] [address] 10/06/2024 12:46:32 10/06/2024 13:36:56 Lumbar radiculopathy 844916451 M54.16 Lumbar spondylosis 90165 0009 M47.896 Degenerati on of lumbar intervertebral disc 49745768 M51.362 Long-term current use of opiate analgesic drug 4900522392 61461 Z79.891 Cervical radiculopathy 60790471 M54.12 Degenerati on of cervical intervertebral disc 19315784 M50.30 Neck pain 94796433 M54.2 Continuous opioid dependence 380555661 F11.20 Health Concerns Section Related Observation LastModified by Organization Detai ls LastModified Time None Recorded Concern Status LastModified by Organization Details LastModified Time None Recorded Advance Directives Directive Y: Payers Insurance Date Sequence Insurance Name Policy Number Policy Jason Covered Member ID Jason Member ID Guarantor Name 07/21/2024 1 [employer] [place] (MEDICAID REPLACEMENT - HMO) [id number] Shantel Rod Kalie [id number] Shantel Jade 07/21/2024 1 [employer] [place] (MEDICAID REPLACEMENT - HMO) Shantel Jade [id number] Shantel Jade 05/27/2025 1 [employer] (MEDICARE REPLACEMENT/AD VANTAGE - PPO) [id number] Shantel Jade [id number] Shantel Jade Notes Date Note Type Note Provider Name and Address Organization Details Recorded Time 12/13/2023 text/html Neck painReporte d by PatientHPIFor quality, patient reportsthrobbing,ting ling, andvaries. For associated symptoms, patient reportsweakness,numbn ess, andpain in upper extremities. For location, patient reportsradiating to the bilateral upper extremities to the hand. For duration, patient reportsconstant. For context, patient reportsstarted without cause. For severity, patient reportscurrent pain level: 5/10. For alleviating factors, patient reportslying down,rest, andrelieved by changing position. For aggravating factors, patient reportssitting(walkin g/driving). For timing, patient reportsconstant. For previous pt, patient reportsresponse to therapy: made pain worse. Aaron Bhatt MD [address], [address], [place] [facility] 12/13/2023 21:55:59 07/21/2024 text/html Neck painReporte d by PatientHPIFor quality, patient reportsthrobbing,ting ling, andvaries. For associated symptoms, patient reportsweakness,numbn ess, andpain in upper extremities. For location, patient reportsradiating to the bilateral upper extremities to the hand. For duration, patient reportsconstant. For context, patient reportsstarted without cause. For severity, patient reportscurrent pain level: 7/10. For alleviating factors, patient reportslying down,rest, andrelieved by changing position. For aggravating factors, patient reportssitting(walkin g/driving). For timing, patient reportsconstant. For previous pt, patient reportsresponse to therapy: made pain worse. Aaron Bhatt MD [address], [address], [place] [facility] 07/21/2024 20:16:36 10/06/2024 text/html Neck painReporte d by PatientHPIFor quality, patient reportsthrobbing,ting ling, andvaries. For associated symptoms, patient reportsweakness,numbn ess, andpain in upper extremities. For location, patient reportsradiating to the bilateral upper extremities to the hand. For duration, patient reportsconstant. For context, patient reportsstarted without cause. For severity, patient reportscurrent pain level: 4/10. For alleviating factors, patient reportslying down,rest, andrelieved by changing position. For aggravating factors, patient reportssitting(walkin g/driving). For timing, patient reportsconstant. For previous pt, patient reportsresponse to therapy: made pain worse. Aaron Bhatt MD [address] [address], [place], [address], [place] [facility] 10/06/2024 13:36:06 OBGyn Episode No OBEpisode recorded.
--- OUTSIDE RECORDS SUMMARY | 2025-07-10 12:22 | XMS_ITS | Data Portability ---
Author Organization [facility], [place] Address [address] [place] [address] Care Team Providers Care Mcat Instructor Name Role Phone ALLEN MONAHAN Primary Care Provider GURVINDER NOBLES Produce Service Team Member DENILSON HARTMANN Interventional Physician ZARIA RIDLEY Die Maker Bench Stamping MAYRA LUIS Orthopedic Surgeon [phone] NAMAN SCOTT Train Driver ALEX BERMUDEZ Supervisor Rose Grading Assessment Encounter Date Assessment Date Assessment LastModified by Organization Details LastModified Time 09/20/2023 09/20/2023 Assessment: 1. Symptoms consistent with OSAS: snoring, witnessed apneas, fatigue, nocturnal awakenings, headaches, brain fog, frequent napping *HST (03/06/2023): mild JANAE, AHI 10.2 with lowest saturation recorded as 88% and mean oxygen saturation 94% *DME: [facility] *Device/Settings : APAP 4-20 2. Dyspnea *PFT (01/31/2023): mild restriction, +midflow obstruction, minimal KEIKO response *PFT (09/20/2023): no restriction,+ midflow obstruction, mild KEIKO response 3. History of spinal cord stimulator, DDD, KAITY, DM, neuropathy *managed by PCP Plan: 1. Continue APAP 4-20 cm H20 nightly and prn *Consider repeat HST once patient has lost 30 pounds 2. Continue Symbicort 160 mcg 2 puffs twice daily; Instructed to rinse mouth after each use *Failed Flovent 3. Albuterol HFA prn; Discussed indications for use 4. RTO as scheduled, sooner if needed PFT The patient underwent pulmonary function testing today to evaluate complaints of dyspnea. Results were discussed with the patient. [email or web address] Not available 09/20/2023 15:00:19 11/02/2023 11/02/2023 Assessment: 1. Symptoms consistent with OSAS: snoring, witnessed apneas, fatigue, nocturnal awakenings, headaches, brain fog, frequent napping *HST (03/06/2023): mild JANAE, AHI 10.2 with lowest saturation recorded as 88% and mean oxygen saturation 94% *DME: [facility] *Device/Settings : APAP 4-20 2. Dyspnea *PFT (01/31/2023): mild restriction, +midflow obstruction, minimal KEIKO response *PFT (09/20/2023): no restriction,+ midflow obstruction, mild KEIKO response 3. History of spinal cord stimulator, DDD, KAITY, DM, neuropathy *managed by PCP Plan: 1. Continue APAP 4-20 cm H20 nightly and prn *Consider repeat HST once patient has lost 30 pounds 2. Continue Symbicort 160 mcg 2 puffs twice daily; Instructed to rinse mouth after each use *Failed Flovent 3. Albuterol HFA prn; Discussed indications for use 4. RTO as scheduled, sooner if needed [email or web address] Not available 11/02/2023 11:00:16 02/04/2024 02/04/2024 Assessment: 1. JANAE *HST (03/06/2023): mild JANAE, AHI 10.2 with lowest saturation recorded as 88% and mean oxygen saturation 94% *DME: [facility] *Device/Settings : APAP 4-20 2. Dyspnea *PFT (01/31/2023): mild restriction, +midflow obstruction, minimal KEIKO response *PFT (09/20/2023): no restriction,+ midflow obstruction, mild KEIKO response 3. History of spinal cord stimulator, DDD, KAITY, DM, neuropathy *managed by PCP Plan: 1. Change to CPAP 8 cm nightly and prn (sent to [facility]) *Consider repeat HST once patient has lost 30 pounds 2. Patient discontinued Symbicort *Failed Flovent 3. Albuterol HFA prn; Discussed indications for use 4. RTO in 4 weeks for CPAP compliance check with new pressure setting Total clinician time spent on date of this encounter is 30 minutes including preparing to see the patient, educating patient, obtaining history, performing a medically necessary and appropriate examination, reviewing medical records, ordering unique testing and documenting clinical information in the EHR or other health record. Portions of this note may be dictated using voice recognition software and or use of a emergency medical technician. Variances in spelling and vocabulary are possible and unintentional. Not all errors are caught/corrected . Please notify the author if any discrepancies are noted or if the meaning of any statement is not clear. This is a summary discussion with the patient and in no way is intended to be a verbatum summation of everything discussed. We apologize for any inconvenience. Not available 02/04/2024 15:07:44 04/21/2024 04/21/2024 Assessment: 1. JANAE *HST (03/06/2023): mild JANAE, AHI 10.2 with lowest saturation recorded as 88% and mean oxygen saturation 94% *DME: [facility] *Device/Settings : APAP 4-20 2. Dyspnea *PFT (01/31/2023): mild restriction, +midflow obstruction, minimal KEIKO response *PFT (09/20/2023): no restriction,+ midflow obstruction, mild KEIKO response *PFT (04/21/2024): very severe obstruction (reversible), mild restriction (FVC 75), +midflow obstruction, +KEIKO *FeNO (04/21/2024): 12 3. History of spinal cord stimulator, DDD, KAITY, DM, neuropathy *managed by PCP 4. BMI 28.9 *142 pound total weight loss (intentional) Plan: 1. Continue CPAP 8 cm nightly and prn 2. Repeat HST-142 pound weight loss *staff to contact pt when HST available for strip picker *suspect JANAE resolved after weight loss 3. Patient discontinued Symbicort *Failed Flovent 4. Albuterol HFA prn; Discussed indications for use 5. Order CXR *abnormal PFT 6. RTO after HST completed Portions of this note may be dictated using voice recognition software and or use of a emergency medical technician. Variances in spelling and vocabulary are possible and unintentional. Not all errors are caught/corrected . Please notify the author if any discrepancies are noted or if the meaning of any statement is not clear. This is a summary discussion with the patient and in no way is intended to be a verbatum summation of everything discussed. We apologize for any inconvenience. Not available 04/22/2024 08:57:48 05/01/2024 05/01/2024 Assessment: 1. JANAE *HST (03/06/2023): mild JANAE, AHI 10.2 with lowest saturation recorded as 88% and mean oxygen saturation 94% *HST (04/30/2024): moderate JANAE, AHI 18.5, VIOLA 84%, trivial snoring *DME: [facility] *Device/Settings : APAP 4-20 2. Dyspnea *PFT (01/31/2023): mild restriction, +midflow obstruction, minimal KEIKO response *PFT (09/20/2023): no restriction,+ midflow obstruction, mild KEIKO response *PFT (04/21/2024): very severe obstruction (reversible), mild restriction (FVC 75), +midflow obstruction, +KEIKO *FeNO (04/21/2024): 12 3. History of spinal cord stimulator, DDD, KAITY, DM, neuropathy *managed by PCP 4. BMI 28.9 *142 pound total weight loss (intentional) Plan: 1. Continue CPAP 8 cm nightly and prn 2. Patient discontinued Symbicort *Failed Flovent 3. Albuterol HFA prn; Discussed indications for use 4. Full PFT at next OV 5. RTO in 6 months, sooner if needed Portions of this note may be dictated using voice recognition software and or use of a emergency medical technician. Variances in spelling and vocabulary are possible and unintentional. Not all errors are caught/corrected . Please notify the author if any discrepancies are noted or if the meaning of any statement is not clear. This is a summary discussion with the patient and in no way is intended to be a verbatum summation of everything discussed. We apologize for any inconvenience. Not available 05/01/2024 14:47:09 Plan of Treatment Reminders Order Date Submit Date Provider Last Modified By Organization Details Last Modified Time Details Appointments None recorded. Lab None recorded. Referral None recorded. Procedures home sleep testing (PROC) 2023 024 [email or web address] [place] Ver[place] DO ([facility]), [address], [place], [address], 4 15:44:38 Surgeries None recorded. Imaging XR, chest, 2 view 2023 024 [facility] (Registration ), [address] , [place], [address], 4 13:51:57 Medication Orders albuterol sulfate HFA 90 mcg/actuat ion aerosol inhaler 2022 023 [email or web address] [facility], [address] [place], [place], [id number], 3 14:39:35 Patient TargetsNo targets recorded. Patient InstructionsNo instructions recorded. Reason for Referral None Reported. Results Created Date Observation Date Name Description Value Unit Range Abnormal Flag Note LastModifiedBy Organization Detail LastModifiedTime 09/21/20 23 09/17/2023 CPAP compl iance * No observ ation record ed. [email or web address] Not Available 2023 13:03:38 11/06/19 24 11/01/2023 CPAP compl iance * No observ ation record ed. [email or web address] Not Available 2023 11:11:30 02/06/20 24 01/30/2024 CPAP compl iance * No observ ation record ed. [email or web address] Not Available 2023 08:42:30 02/06/20 24 01/30/2024 CPAP compl iance * No observ ation record ed. [email or web address] Not Available 2023 08:42:39 04/23/20 24 04/17/2024 CPAP compl iance * No observ ation record ed. [email or web address] Not Available 2023 12:26:22 04/23/20 24 04/23/2024 compl ete PFT w/ post [facility] hodil ator polo metry * No observ ation record ed. [email or web address] Not Available 2023 12:26:30 04/28/20 24 04/23/2024 XR, chest , 2 view No observ ation record ed. BARCODE [facility] (Registration ) [address] , [place], [address], 04/28/2024 13:51:57 05/08/20 24 02/29/2024 home sleep testi ng (PROC ) No observ ation record ed. [email or web address] Not Available 2023 14:40:30 Result Notes None recorded. Problems Name Problem SNOMED Code Status Onset Date Resolution Date Notes Provider Name and Address Organization Details Recorded Time Reactive airway disease 032921309150 Active 2022 Flor Sims, RA [address], [facility] [place], [address] [place] - [facility] 13:29:13 Type 2 diabetes mellitus 45660655 Active 2022 hesham wen null, [place] - [facility] 13:34:22 Polyneuropa thy 95933911 Active 2022 hesham wen null, [place] - [facility] 3 13:34:31 Osteoarthri tis 585567384 Active 2022 hesham wen null, [place] - [facility] 13:34:37 Headache 90090848 Active 2022 hesham wen null, [place] - [facility] 3 13:34:43 Carpal tunnel syndrome 90903262 Active 2022 hesham wen null, [place] - [facility] 3 13:35:07 Depressive disorder 07624421 Active 2022 hesham wen null, [place] - [facility] 3 13:35:15 Problem Notes None recorded. Procedures Surgical History Date Name Laterality Status Provider Name and Address Organization Details Recorded Time Remove tonsils and adenoids completed hesham wen [place] - [facility] 01/31/2023 13:32:10 operative procedure on knee completed hesham wen [place] - [facility] 01/31/2023 13:32:38 operative procedure on shoulder completed hesham wen [place] - [facility] 01/31/2023 13:32:51 Dilation and curettage completed hesham wen [place] - [facility] 01/31/2023 13:33:01 extraction of cataract completed hesham wen [place] - [facility] 01/31/2023 13:33:24 colonoscopy completed hesham wen [place] - [facility] 01/31/2023 13:33:33 Imaging Results None recorded. Procedure Notes None recorded. Medical Equipment None Reported. Allergies Allergen ID Allergen Name Allergen Category Reaction Reaction Severity Criticality Documentation Date Start Date Code Code System Note Provider Name and Address Organization Details Recorded Time Byetta medicatio n Not available Not available Not available 01/31/2023 08295 1 RxNorm hesham wen null, [place] - [facility] 13:26:30 purified protein derivativ e of tuberculi n medicatio n Not available Not available Not available 01/31/2023 8948 RxNorm hesham wen [place], [place] - [facility] 13:26:41 Shingrix medicatio n Not available Not available Not available 01/31/202319858 26 RxNorm hesham wen null, [place] - [facility] 13:26:52 calcium medicatio n Not available Not available Not available 01/31/2023 1895 RxNorm hesham wen null, [place] - [facility] 3 13:26:59 Medications Name Sig Start Date Stop Date Status Note LastModified by Organization Details LastModified Time amoxicillin 500 mg capsule TAKE FOUR CAPSULES BY MOUTH one full prior TO dental appointme nt 01/31 completed Not Available Not Available Not Available gabapentin 600 mg tablet TAKE ONE TABLET BY MOUTH FOUR TIMES DAILY active Not Available Not Available No t Available atorvastati n 20 mg tablet TAKE ONE TABLET BY MOUTH EVERY DAY active Not Available Not Available No t Available azithromyci n 250 mg tablet TAKE 2 TABLETS BY MOUTH ON DAY 1, THEN TAKE 1 TABLET DAILY ON DAYS 2-5 03/12 completed Not Available Not Available Not Available nystatin 100,000 unit/gram topical ointment APPLY TO THE AFFECTED AREA(S) TWICE DAILY active Not Available Not Available No t Available fluconazole 150 mg tablet TAKE ONE TABLET BY MOUTH FOR THREE DAYS 02/03 completed Not Available Not Available Not Available gabapentin 400 mg capsule TAKE ONE CAPSULE BY MOUTH FOUR TIMES DAILY 01/31 completed Not Available Not Available Not Available Accu-Chek Softclix Lancets USE TO test blood sugar TWICE DAILY active Not Available Not Available No t Available penicillin V potassium 500 mg tablet Take 1 tablet by mouth four times a day; Take until entire Rx is finished. 09/20 completed Not Available Not Available Not Available sulfamethox azole 800 mg-trimetho prim 160 mg tablet TAKE ONE TABLET BY MOUTH TWICE DAILY 09/20 completed Not Available Not Available Not Available peg-electro lyte solution 420 gram oral solution Take as directed per Dr. Nobles's office. 01/31 completed Not Available Not Available Not Available aspirin 81 mg tablet,omari yed release TAKE ONE TABLET BY MOUTH TWICE DAILY active Not Available Not Available No t Available tramadol 50 mg tablet TAKE TWO TABLETS BY MOUTH EVERY 6 HOURS NEEDED active Not Available Not Available No t Available amoxicillin 500 mg tablet TAKE ONE TABLET BY MOUTH TWICE DAILY active Not Available Not Available No t Available oxycodone-a cetaminophe n 5 mg-325 mg tablet TAKE ONE TABLET BY MOUTH EVERY 4 HOURS NEEDED FOR PAIN 02/03 completed Not Available Not Available Not Available [...] Not Available Not Available No t Available metformin 1,000 mg tablet TAKE ONE TABLET BY MOUTH TWICE DAILY 01/31 completed Not Available Not Available Not Available nystatin 100,000 unit/gram topical cream APPLY TO THE AFFECTED AREA(S) THREE TIMES DAILY active Not Available Not Available No t Available glimepiride 4 mg tablet TAKE ONE TABLET BY MOUTH DAILY active Not Available Not Available No t Available indomethaci n 25 mg capsule TAKE ONE CAPSULE BY MOUTH TWICE DAILY WITH FOOD active Not Available Not Available No t Available Senna Laxative 8.6 mg tablet TAKE ONE TABLET BY MOUTH TWICE DAILY NEEDED 02/03 completed Not Available Not Available Not Available benazepril 20 mg tablet Take 1 Tablet by mouth daily. active Not Available Not Available No t Available mupirocin 2 % topical ointment APPLY TO THE AFFECTED AREA(S) THREE TIMES DAILY active Not Available Not Available No t Available albuterol sulfate HFA 90 mcg/actuati on aerosol inhaler Inhale 2 puffs every 4 hours by inhalatio n route as needed for 30 days. 2022 active Not Available Not Available Not Avai lable Vitamin D2 1,250 mcg (50,000 unit) capsule TAKE ONE CAPSULE BY MOUTH ONCE a WEEK active Not Available Not Available No t Available benazepril 10 mg tablet TAKE ONE TABLET BY MOUTH EVERY DAY 09/20 completed Not Available Not Available Not Available fluticasone propionate 50 mcg/actuati on nasal spray,suspe nsion SPRAY one SPRAY in each nostril DAILY active Not Available Not Available No t Available amoxicillin 875 mg-potassiu m clavulanate 125 mg tablet TAKE ONE TABLET BY MOUTH TWICE DAILY active Not Available Not Available No t Available Senna Plus 8.6 mg-50 mg tablet TAKE ONE TABLET BY MOUTH TWICE DAILY NEEDED active Not Available Not Available No t Available ketorolac 0.4 % eye drops STARTING THREE DAYS BEFORE surgery place ONE DROP into operative eye FOUR TIMES DAILY FOR 10 DAYS THEN decrease TO TWICE DAILY FOR FOURTEEN DAYS 01/31 completed Not Available Not Available Not Available duloxetine 30 mg capsule,del ayed release TAKE ONE CAPSULE BY MOUTH DAILY 01/31 completed Not Available Not Available Not Available duloxetine 60 mg capsule,del ayed release TAKE ONE CAPSULE BY MOUTH EVERY DAY active Not Available Not Available No t Available Flovent HFA 110 mcg/actuati on aerosol inhaler Inhale 1 puff twice a day by mouth for 30 days. 09/20 completed Not Available Not Available Not Available Nyamyc 100,000 unit/gram topical powder ONE applicati on TWICE DAILY DIRECTED PER package 02/03 completed Not Available Not Available Not Available Symbicort 160 mcg-4.5 mcg/actuati on HFA aerosol inhaler Inhale TWO puffs BY MOUTH TWICE DAILY 04/21 completed Not Available Not Available Not Available Allergy Relief (cetirizine ) 10 mg tablet Take 1 tablet by mouth daily active Not Available Not Available No t Available BD Ultra-Fine Maribel Pen Needle 32 gauge x USE DIRECTED EVERY DAY active Not Available Not Available No t Available Tradjenta 5 mg tablet Take 1 tablet by mouth daily 01/31 completed Not Available Not Available Not Available Levemir FlexTouch U-100 Insulin 100 unit/mL (3 mL) subcutaneou s pen INJECT 60 UNITS UNDER THE SKIN DAILY 01/31 completed Not Available Not Available Not Available Jardiance 25 mg tablet Take ONE Tablet by MOUTH daily active Not Available Not Available No t Available Basaglar KwikPen U-100 Insulin 100 unit/mL (3 mL) subcutaneou s INJECT UP TO 50 units UNDER THE SKIN PER DAY 04/21 completed Not Available Not Available Not Available Accu-Chek Guide test strips USE TO test blood sugars TWICE DAILY active Not Available Not Available No t Available Accu-Chek Guide Glucose Meter USE TO test blood sugar TWICE DAILY active Not Available Not Available No t Available Synjardy XR 12.5 mg-1,000 mg tablet, extended release Take 2 Tablets by mouth daily. active Not Available Not Available No t Available Ozempic 0.25 mg or 0.5 mg (2 mg/1.5 mL) subcutaneou s pen injector INJECT 0.5 MG UNDER THE SKIN ONCE WEEKLY 03/12 completed Not Available Not Available Not Available OneTouch Delica Plus Lancet 33 gauge USE DIRECTED THREE TIMES DAILY active Not Available Not Available No t Available Stool Softener-St imulant Laxative 8.6 mg-50 mg capsule Take ONE (one) CAPSULE by MOUTH two times daily, as needed active Not Available Not Available No t Available Ozempic 1 mg/dose (4 mg/3 mL) subcutaneou s pen injector inject 1mg UNDER THE SKIN ONCE a WEEK 04/21 completed Not Available Not Available Not Available Ozempic 2 mg/dose (8 mg/3 mL) subcutaneou s pen injector inject 2mg under the skin ONCE a WEEK active Not Available Not Available No t Available Vitals Date Recorded Body height Provider Name an d Address Organization Details Last Updated DateTime 02/04/2024 157.48 cm glendy porter [place] - [facility] 02/04/2024 13:45:01 Date Recorded Body height Body mass index (BMI) Body weight Oxygen saturation Oxygen saturation in Arterial blood by Pulse oximetry Heart rate Respiratory rate Body temperature Systolic And Diastolic Provider Name and Address Organization Details Last Updated DateTime 4 157.48 cm 28.9 kg/m2 34250.5 9 g 100 % 100 % 66 /min 18 /min 97.5 [degF] 112/78 mm[Hg] glendy porter [place] - [facility] 4 13:46:28 Date Recorded Body height Provider Name an d Address Organization Details Last Updated DateTime 05/01/2024 157.48 cm [facility] 05/01/2024 13:47:11 Date Recorded Body height Oxygen saturation Oxygen saturation in Arterial blood by Pulse oximetry Heart rate Respiratory rate Systolic And Diastolic Provider Name and Address Organization Details Last Updated DateTime 3 157.48 cm 98 % 98 % 97 /min 17 /min 100/62 mm[Hg] hesham carver [place] - [facility] 3 10:47:43 Social History Question Answer Notes LastModified by Organizat ion Details LastModified Time Tobacco Smoking Status Never Smoker hesham zacarias [place] - [facility] 01/31/2023 13:29:08 Do You Have An Advance Directive? Yes [email or web address] Information not available 04/21/2024 Is Your Home Air Conditioned? Yes [email or web address] Information not available 04/21/2024 Are You Blind Or Do You Have Difficulty Seeing? No [email or web address] Information not available 01/31/2023 In The 14 Days Before Symptom Onset, Have You Had Close Contact With A Laboratory-confi rmed COVID-19 While That Case Was Ill? No [email or web address] Information not available 01/31/2023 In The 14 Days Before Symptom Onset, Have You Had Close Contact With A Person Who Is Under Investigation For COVID-19 While That Person Was Ill? No [email or web address] Information not available 01/31/2023 Have You Been To An Area Known To Be High Risk For COVID-19? No [email or web address] Information not available 01/31/2023 Are You Deaf Or Do You Have Serious Difficulty Hearing? No [email or web address] Information not available 01/31/2023 Where Do You Live? SingleLevelHouse [email or web address] Information not available 04/21/2024 Do You Have A Medical Power Of Freight Adjuster? Yes [email or web address] Information not available 04/21/2024 What Was The Date Of Your Most Recent Tobacco Screening? 04/21/2024 [email or web address] Information not available 04/21/2024 Do You Have Any Pets? Yes 4 Cats [email or web address] Information not available 01/31/2023 What Is Your Relationship Status? Single [email or web address] Information not available 01/31/2023 Are There Any Smokers In Your House? No [email or web address] Information not available 01/31/2023 Has Tobacco Cessation Counseling Been Provided? No [email or web address] Information not available 04/21/2024 Have You Recently Traveled Abroad? No [email or web address] Information not available 01/31/2023 Are You Currently In School? No [email or web address] Information not available 01/31/2023 Sex: Unknown Functional Status Question Answer Note LastModified by Organizat ion Details LastModified Time Do you or have you ever used any other forms of tobacco or nicotine? No [email or web address] Information not available 01/31/2023 Are you currently employed? 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 [email or web address] Information not available 01/31/2023 Do you have difficulty doing errands alone? No Information not available 01/31/2023 Mental Status Question Answer Note LastModified by Organization D etails LastModified Time Do you have difficulty concentrating, remembering or making decisions? No Information no t available 01/31/2023 Family History Relationship Description Onset Age of this Age Resolved Age Notes LastModified by Organization Details LastModified Time Maternal Grandmother Family history of malignant neoplasm [email or web address] Not available 01/22 13:30:38 Mother Family history of malignant neoplasm [email or web address] Not available 01/22 13:30:38 Mother Restless legs syndrome [email or web address] Not available 01/22 13:31:38 Father Chronic obstructive pulmonary disease [email or web address] Not available 01/22 13:30:57 Father Heart disease [email or web address] Not available 01/22 13:31:20 Father Sleep apnea Not derek ilable 01/31/2023 13:31:29 Paternal Grandmother Chronic obstructive pulmonary disease [email or web address] Not available 01/22 13:30:57 Paternal Grandmother Emphysema [email or web address] Not available 01/31/2023 13:31:06 Paternal Grandfather Heart disease [email or web address] Not available 01/22 13:31:20 Medical History Condition Response Diabetes Y Hospital Admission Other Than Y Gynecological HistoryNo gynecological history recorded. Obstetrics History GPAL:G 0 P 0 0 0 0 Immunizations Vaccine Type Date Status Note Provider Nam e and Address Organization Details Recorded Time COVID-19 vaccine, vector-nr, [id number], PF, 0.5 mL 11/22/2020 completed hesham wen null, [place] - [facility] 01/31/2023 13:28:33 COVID-19, mRNA, LNP-S, bivalent, PF, 50 mcg/0.5 mL or 25mcg/0.25 mL dose 01/25/2022 completed hesham wen null, [place] - [facility] 01/31/2023 13:28:45 COVID-19, mRNA, LNP-S, bivalent, PF, 50 mcg/0.5 mL or 25mcg/0.25 mL dose 08/25/2022 completed hesham wen null, [place] - [facility] 01/31/2023 13:28:51 Past Encounters Encounter ID Performer Location Encounter Start Date Encounter Closed Date Diagnosis/Indication Diagnosis SNOMED-CT Code Diagnosis ICD10 Code Diagnosis IMO Codes Diagnosis Note [id number] Flor Sims NP [address] [place] [address] [place] [address] 0 01/31/2023 12:43:28 01/31/2023 13:58:54 Reactive airway disease [id number] 06 J45.909 Hypersomnia 93704098 G47 .10 Dyspnea 922871727 R06.00 [id number] Flor Sims NP [address] [place] [address] [place] [address] 0 02/02/2023 08:46:46 02/02/2023 10:01:15 Reactive airway disease [id number] 06 J45.909 Hypersomnia 21663684 G47 .10 Dyspnea 515554380 R06.00 [id number] Flor Sims NP [address] [place] [address] [place], [place] [id number] 03/12/2023 13:22:23 03/12/2023 13:50:16 Reactive airway disease [id number] 06 J45.909 Hypersomnia 69127400 G47 .10 Dyspnea 292260947 R06.00 Obstructiv e sleep apnea syndrome 37837375 G47.33 [id number] Flor Sims NP [address] [place] [address] [place] [id number] 05/21/2023 10:06:13 05/21/2023 10:34:34 Reactive airway disease [id number] 06 J45.909 Hypersomnia 90257227 G47 .10 Dyspnea 936130076 R06.00 Obstructiv e sleep apnea syndrome 32485227 G47.33 [id number] Flor Sims NP [address] [place] [address] [place] [id number] 09/20/2023 10:36:41 09/20/2023 11:09:14 Reactive airway disease [id number] 06 J45.909 Hypersomnia 48403332 G47 .10 Dyspnea 729245279 R06.00 Obstructiv e sleep apnea syndrome 70047323 G47.33 [id number] Flor Sims NP [address] [place] [address] 0 11/02/2023 10:43:26 11/02/2023 15:13:55 Reactive airway disease 0623952448 06 J45.909 Hypersomnia 66990198 G47 .10 Dyspnea 455873679 R06.00 Obstructiv e sleep apnea syndrome 73818021 G47.33 [id number] Flor Sims NP [address] [place] [address] 0 02/04/2024 13:41:19 02/04/2024 15:41:09 Reactive airway disease 9323878265 06 J45.909 Hypersomnia 41815734 G47 .10 Dyspnea 808014799 R06.00 Obstructiv e sleep apnea syndrome 13338968 G47.33 [id number] Juan Scruggs [address] [place] [address] 04/21/2024 13:35:17 04/21/2024 14:25:10 Reactive airway disease 0493106271 06 J45.909 Obstructiv e sleep apnea syndrome 47205371 G47.33 Hypersomnia 13325862 G47 .10 Dyspnea 271526758 R06.00 [id number] Juan Scruggs [address] [place] [address] 0 05/01/2024 13:46:32 05/01/2024 14:04:40 Reactive airway disease 0140304225 06 J45.909 Obstructiv e sleep apnea syndrome 14786353 G47.33 Hypersomnia 15088893 G47 .10 Dyspnea 699022114 R06.00 Health Concerns Section Related Observation LastModified by Organization Detai ls LastModified Time None Recorded Concern Status LastModified by Organization Details LastModified Time None Recorded Advance Directives Directive Y: Payers Insurance Date Sequence Insurance Name Policy Number Policy Jason Covered Member ID Jason Member ID Guarantor Name 10/26/2024 1 [employer] (MEDICARE REPLACEMENT/ ADVANTAGE - PPO) Shantel Jade [id number] Shantel Jade 10/03/2023 1 MICHELE Jade [id number] Shantel Jade Notes Date Note Type Note Provider Name and Address Organization Details Recorded Time 09/20/2023 text/html ROS as noted in the HPI This is 58 year-old female presents to the office for the ongoing management of sleep apnea and dyspena. Patient has lost 15 pounds since her last visit. Today the patient offers no respiratory complaints. Denies any shortness of breath, cough, wheezing or nocturnal respiratory symptoms. She continues to use Symbicort 2 puffs twice daily and has not needed to use her rescue inhaler. She notes continued benefit of CPAP therapy as it has decreased her excessive daytimesleepiness and nonrestorative sleep. A CPAP compliance report was generated in theoffice today that revealed 97% compliance (77% greater than 4 hours) with AHI:13.7 and median leaks 13.8 l/min. Patient reports she has trialed 3 different mask due to improper fit and leaking and is currently using a new mask. Compliance data was discussed during todays visit. Denies fever, chills, chest pain, nausea, vomiting, diarrhea. Flor Sims NP [address], [place], [address], [facility] 09/20/2023 15:00:22 11/02/2023 text/html ROS as noted in the HPI This is a 58 year-old female who presents to the office for the ongoing management of JANAE and CPAP compliance.She notes continued benefit of CPAP therapy as it has decreased her excessive daytimesleepiness and nonrestorative sleep. A CPAP compliance report was generated in the office today for the dates of 10/03/2023-11/01/2023 that revealed 97% compliance (90% greater than 4 hours) with AHI: 8.6 and median leaks 1.0 L/min. Patient reports she received her new mask 10/16/2023.Denies any fever, chills, n/v/d, abdominal pain or lower extremity edema. Flor Sims NP [address], [place], [address], [place] [facility] 11/02/2023 11:00:48 02/04/2024 text/html ROS as noted in the HPI This is 59 year-old female presents to the office via telemedicine audio/video visit via [facility] for the ongoing management of JANAE. Patient denies any significant medical events since her last office visit. Patient discontinued use of Symbicort. She denies any cough, wheezing, shortness of breath or nocturnal respiratory symptoms. She notes continued benefit of CPAP therapy as it has decreased her excessive daytimesleepiness and nonrestorative sleep. She would like to change her settings to continuous as she feels auto settings are not strong enough. A CPAP compliance report was generated in theoffice today that revealed 100% compliance (100% greater than 4 hours) with AHI:13.2 and median leaks 0. Compliance data was discussed during todays visit. Flor Sims NP [address], [place], [address], [facility] 02/04/2024 15:08:53 04/21/2024 text/html ROS as noted in the HPI This 59 year-old female returns to the office for the ongoing management of JANAE and dyspnea. Patient reports intentional weight loss now totaling 142 pounds. She states she feels wonderful but has now found enlarged lymph nodes in her left groin that she is awaiting testing for. Patient denies any respiratory complaints. Denies shortness of breath, cough, wheezing or nocturnal respiratory symptoms. She is not using any inhaled respiratory medications.Patient continues to wear her CPAP nightly and notes positive benefits of use as evidenced by improved sleep quality and improved daytime fatigue. A CPAP compliance report was generated for the dates of (03/19/2024-04/17/2024 ) that revealed 97% compliance (90% greater than 4 hours) with AHI: 17.4 and median leaks 0.2 L/min. Compliance data was discussed during todays visit.Denies any fever, chills, n/v/d, abdominal pain or lower extremity edema. Flor Sims NP [address], [place], [address], [facility] 04/22/2024 08:58:57 05/01/2024 text/html ROS as noted in the HPI This 59 year-old female, returns to the office to discuss the results of recent home sleep testing. Repeat HST completed as patient has had a 142 pound intentional weight loss.Home sleep study performed on (04/30/2024) that revealed moderate obstructive sleep apneawith AHI: 18.5,trivial snoring, and sleep-related hypoxia with a viola of 84%. I discussed the results of the study with the patient and proposed treatment plan.Denies fever, chills, chest pain, nausea, vomiting, diarrhea. Flor Sims NP [address], [place], [address], [facility] 05/01/2024 14:47:25 OBGyn Episode No OBEpisode recorded.
[2025-07-10 12:35] VITALS: BMI 32.3
--- NOTE | 2025-07-10 12:55 | ECG_ITS ---
APPROVED REPORT Exam: Resting ECG HR:72 bpm ECG Measurements Heart Rate 72 AXES NE 163 P 46 QRSd 93 QRS 2 QT 352 T 25 QTc 376 Conclusion SINUS RHYTHM LOW QRS VOLTAGE IN PRECORDIAL LEADS [QRS DEFLECTION < 1.0 mV IN CHEST LEADS] NONSPECIFIC T-WAVE ABNORMALITY BORDERLINE ECG UNCONFIRMED REPORT Electronically signed by : Jesus Magaña MD 07/11/2025 08:51:29
[2025-07-10 13:16] LABS: Hematocrit 40.3 % (37.0-47.0); Hemoglobin 13.3 g/dL (12.2-16.2); Immature Granulocytes % 0.1 %; Mean Corpuscular HGB Conc 33.0 g/dL (31.8-35.4); Mean Corpuscular Hemoglobin 28.4 pg (27.0-31.2); Mean Corpuscular Volume 86.1 fl (81-99); Nucleated Red Blood Cells % 0 %; Platelet Count 185 K/mm3 (142-424); Red Blood Count 4.68 M/mm3 (4.20-5.40); Red Cell Distribution Width-SD 39.4 fL; White Blood Count 7.1 K/mm3 (4.8-10.8)
[2025-07-10 13:27] LABS: Chloride 95 mmol/L (98-107); Potassium 3.5 mmoL/L (3.5-5.1); Sodium 136 mmol/L (136-145)
[2025-07-10 13:30] LABS: Blood Urea Nitrogen 16 mg/dl (7-17); Carbon Dioxide 32 mmol/L (22.0-30.0); Creatinine Clearance Estimated 111 mL/min (50-200); Creatinine,Serum 0.70 mg/dl (0.52-1.04); Estimated Glomerular Filt Rate 86 ml/min (>60); GFR (African American) 104 ML/MIN (>60); Glucose 132 mg/dl (74-100)
[2025-07-10 13:31] LABS: Anion Gap 12.5 mEq/L (5-15); Calcium 8.7 mg/dl (8.4-10.2)
[2025-07-10 15:47] LABS: Hemoglobin A1C 6.6 % (4.0-6.0)
== END 2025-07-10 23:59 | disposition home or self-care (01) ==
LOC: PREOP 12:19
PROVIDERS: PCP Nurse Practitioner Family; Visit Provider Anesthesiology
DX: Z01.810 Encounter for preprocedural cardiovascular examination (principal); Z01.812 Encounter for preprocedural laboratory examination; R94.31 Abnormal electrocardiogram [ECG] [EKG]
CPT/HCPCS: 80048; 83036; 85025; 93005

== ENCOUNTER 2025-07-17 07:33 | Day surgery (SDC) | payer MEDICARE, SELFPAY ==
[2025-07-10 13:56] VITALS: BMI 32.3
[2025-07-17 08:28] VITALS: BP 125/67; PULSE 77; RESP 18; TEMP 36.6; O2SAT 96
[2025-07-17 08:49] LABS: POC Glucose,Bedside 181 gm/dL (70-110)
[2025-07-17] MEDS: LACTATED RINGERS 1000ML 1,000 ML 25 ML IV (08:59)
--- NOTE | 2025-07-17 09:07 | P.PNANES_ITS ---
[facility] Disclaimer: The information contained in this section may have been updated after the patient was seen, as this information can be updated by other users. Medical History Peripheral neuropathy Arthritis JANAE on CPAP Diabetes Surgical History History of tonsillectomy and adenoidectomy History of surgery History of cataract surgery History of shoulder surgery History of knee replacement Family History Other Family history of cancer Family history of diabetes mellitus Family history of heart disease Family history of kidney disease Social History (Updated 07/17/25 @ 08:49 by Luisa Medina RN) Smoking Status: Never smoker alcohol intake: never substance use type: denies use current occupational status: disabled Travel in the last 8 weeks?: None [facility] Anesthesia Checklist Patient Identification Patient Identification: Arm Band and Verbal (Name & ) Structural Data Admitted From: Home Planned Operative Procedure/s: Spinal cord stimulator generator placement Consent for Planned Operative Procedure(s) Verified: Yes Verified Documents: Surgical Consent NPO Status Verified Time NPO: 00:00 Chart Verification Results Verified: ECG Additional verifications Anesthesia Reactions: No Hx Blood Transfusions: No Blood Transfusion Reaction: No Airway Assessment Mallampati Score:: Class II C-Spine Mobility Assessed: Yes TMJ Mobility Assessed: Yes Dentition: Good Dentition Neurological Assessment Level of Consciousness: Awake, Alert and Appropriate Hx Seizures: No Numbness or tingling in extremities: No Anesthesia Plan Anesthesia Risk discussed: Yes Anesthesia Plan: Verified ASA Class: II Anesthesia Type: MAC
[2025-07-17] MEDS: SODIUM CHLORIDE 0.9% 20ML VIAL 40 ML IV (11:10)
[2025-07-17] MEDS: GENTAMICIN 80 MG/2 ML VIAL (11:10)
[2025-07-17] MEDS: LIDOCAINE 1% W/EPI 1:100,000 20ML VIAL 40 ML (11:11)
[2025-07-17 11:27] VITALS: BP 125/73; PULSE 75; RESP 16; TEMP 36.7; O2SAT 94
[2025-07-17 11:42] VITALS: BP 123/72; PULSE 67; RESP 16; O2SAT 92
--- NOTE | 2025-07-17 11:51 | EXP.HP ---
History of Present Illness *Admission Date: 07/17/25 *Reason for visit:: Replacement spinal cord stimulator generator *History of present illness: This patient has a [employer] spinal cord stimulator generator which is nonfunctioning. We will replace her spinal cord stimulator generator today with the [employer] system. [facility] Disclaimer: The information contained in this section may have been updated after the patient was seen, as this information can be updated by other users. Medical History (Updated 07/17/25 @ 11:52 by Aaron Bhatt MD) Peripheral neuropathy Arthritis JANAE on CPAP Diabetes Surgical History History of tonsillectomy and adenoidectomy History of surgery History of cataract surgery History of shoulder surgery History of knee replacement Family History Family history of heart disease Family history of kidney disease Family history of cancer Family history of diabetes mellitus Social History (Updated 07/17/25 @ 09:09 by Sunny Lawton CRNA) Smoking Status: Never smoker alcohol intake: never substance use type: denies use current occupational status: disabled Travel in the last 8 weeks?: None Have you lived/traveled outside US in past 30 days?: No Contact w/someone who lives/traveled outside US past 30 days?: No Exposure to someone with infectious disease in past 14 days?: No Do you have a fever (greater than 100.4 F or 38 C)?: No Have you tested positive for COVID-19?: No Exposed to someone with COVID-19 in past 14 days?: No Do you have a sore throat?: No Do you have a cough?: No Do you have any weakness?: No Are you experiencing any nausea/vomitting?: No Do you have any diarrhea?: No Are you experiencing any unusual bleeding?: No Do you have any muscle aches/pain?: No Do you have any abdominal pain?: No Are you experiencing loss of taste or smell?: No Other Medical History Have you received the Flu Vaccine for this season: No Have you received the Pneumonia Vaccine: Yes Review of Systems Review of Systems Review of systems:: pertinent systems reviewed and negative unless documented below Meds Home Medications and Allergies Home Medications ?Medication ?Instructions ?Recorded ?Confirmed ?Type atorvastatin 20 mg tablet 20 mg PO DAILY 07/17/25 07/17/25 History baclofen 10 mg tablet 10 mg PO QID 07/17/25 07/17/25 History blood-glucose sensor (Dexcom G7 07/17/25 07/17/25 History Sensor device) cetirizine 10 mg tablet 10 mg PO DAILY 07/17/25 07/17/25 History duloxetine 60 mg capsule,delayed 60 mg PO DAILY 07/17/25 07/17/25 History release empagliflozin 25 mg tablet 25 mg PO DAILY 07/17/25 07/17/25 History (Jardiance) ergocalciferol (vitamin D2) 1,250 1,250 mcg PO WEEKLY 07/17/25 07/17/25 History mcg (50,000 unit) capsule (Vitamin D2) fluticasone propionate 50 1 spray intranasal DAILY 07/17/25 07/17/25 History mcg/actuation nasal spray,suspension (Flonase Allergy Relief) gabapentin 800 mg tablet 800 mg PO QID 07/17/25 07/17/25 History hydrochlorothiazide 12.5 mg tablet 12.5 mg PO DAILY 07/17/25 07/17/25 History insulin glargine 100 unit/mL (3 30 unit SQ DAILY 07/17/25 07/17/25 History mL) subcutaneous pen (Lantus Solostar U-100 Insulin) nateglinide 120 mg tablet 120 mg PO TID 07/17/25 07/17/25 History pantoprazole 40 mg tablet,delayed 40 mg PO DAILY 07/17/25 07/17/25 History release semaglutide 1 mg/dose (4 mg/3 mL) 1 mg SQ WEEKLY 07/17/25 07/17/25 History subcutaneous pen injector (Ozempic) sennosides 8.6 mg-docusate sodium 1 tab PO BID 07/17/25 07/17/25 History 50 mg tablet (Senna Plus) sulfamethoxazole 800 1 tab PO BID #14 tabs 07/17/25 Rx mg-trimethoprim 160 mg tablet (Bactrim DS) New Prescriptions to Start Prescriptions: sulfamethoxazole-trimethoprim [Bactrim DS] Bux,Aaron Allergies Allergy/AdvReac Type Severity Reaction Status Date / Time exenatide (From [facility]) Allergy Unknown Verified 07/17/25 08:34 allergy reaction tuberculin, purified protein Allergy Unknown Verified 07/17/25 08:34 deriva allergy reaction vaccine adjuvant system, Allergy Unknown Verified 07/17/25 08:34 AS01B lipo (From [employer]ingrix allergy (PF)) reaction varicella-zoster virus Allergy Unknown Verified 07/17/25 08:34 glycoprotein (From Shingrix allergy (PF)) reaction Exam Data for Last 24 hours Vital signs and Labs for Last 24 Hours: Temp Pulse Resp BP Pulse Ox O2 Del Method 98.1 F 75 16 125/73 94 L Room Air 07/17/25 11:27 07/17/25 11:27 07/17/25 11:27 07/17/25 11:27 07/17/25 11:27 07/17/25 11:27 Laboratory Results - last 24 hr 07/17/25 08:40: POC Glucose 181 H I & O for Last 24 hours: Intake & Output 07/14/25 07/15/25 07/16/25 07/17/25 11:59 11:59 11:59 11:59 Intake Total 100 / 100 Balance 100 / 100 *Routine HEENT Exam Head: Present normocephalic Eye: Present EOMI ENT: Present mucous membranes moist *Routine Respiratory Exam Respiratory: Present CTA bilaterally *Routine Cardiovascular Exam Cardiovascular: Present RRR, Normal S1 and Normal S2 *Routine Abdominal Exam Abdominal: Present soft *Routine Rectal Exam Rectal:: deferred *Routine Genitalia Exam Genitalia:: deferred Assessment and Plan *Assessment and plan (1) Chronic back pain: Status: Acute Qualifiers: Back pain location: low back pain Back pain laterality: bilateral Sciatica presence: with sciatica Sciatica laterality: bilateral sciatica Qualified Code(s): M54.42 - Lumbago with sciatica, left side; M54.41 - Lumbago with sciatica, right side; G89.29 - Other chronic pain Category: Medical Code(s): M54.9 - Dorsalgia, unspecified; G89.29 - Other chronic pain (2) Degenerative joint disease (DJD) of lumbar spine: Status: Acute Qualifiers: Spinal osteoarthritis complication: with radiculopathy Qualified Code(s): M47.26 - Other spondylosis with radiculopathy, lumbar region Category: Medical Code(s): M47.816 - Spondylosis without myelopathy or radiculopathy, lumbar region Plan We will replace the spinal cord stimulator generator today.
--- NOTE | 2025-07-17 11:53 | P.OP_ITS ---
Date of procedure: 07/17/25 Pre-op Diagnosis:: End-of-life spinal cord stimulator generator Post-op Diagnosis:: Sent Procedure performed:: Replacement spinal cord stimulator generator with [employer] system Surgeon:: Aaron Bhatt MD ANTHROPOLOGIST:: Joel Martinez Anesthesia: MAC Estimated blood loss (mL): 5 Clinical Note:: This patient is a pleasant 60-year-old white female who we are treating for degenerative disease of lumbar spine with lumbar radiculopathy symptoms. She has an end-of-life spinal cord stimulator generator which is nonfunctioning. This is a [employer] system. We will replace her generator today with the [employer] system. Operative findings:: None Operative note:: Informed consent obtained risk and benefits of the procedure were explained to t he patient. The patient was taken operating placed prone on the procedure table. We did check the leads under fluoroscopy and found them to be in good position at the T9-T10 and T11 vertebral bodies. The skin and subcutaneous tissues overlying the stimulator generator were anesthetized using lidocaine. I made incision dissected out stimulator generator. I disconnected the leads. I reconnected the leads to the new generator. Impedances were checked and found to be okay. The incision was then closed with 2-0 Vicryl followed by 4-0 nylon and brandyn. The patient was taken recovery in stable condition. The patient was then programmed by the [employer] representative with good stimulation in all areas of pain. Condition: stable Disposition: PACU Complications:: None
[2025-07-17 11:57] VITALS: BP 132/70; PULSE 68; RESP 18; O2SAT 94
== END 2025-07-17 12:06 | disposition home or self-care (01) ==
PROVIDERS: PCP Nurse Practitioner Family; Visit Provider Anesthesiology
PROC: (CPT 63685; principal; 2025-07-17 09:15)
DX: Z45.42 Encounter for adjustment and management of neurostimulator (principal); M51.16 Intervertebral disc disorders with radiculopathy, lumbar region; M47.26 Other spondylosis with radiculopathy, lumbar region; G89.29 Other chronic pain; E11.42 Type 2 diabetes mellitus with diabetic polyneuropathy; G47.33 Obstructive sleep apnea (adult) (pediatric); Z99.89 Dependence on other enabling machines and devices; Z98.890 Other specified postprocedural states; Z88.8 Allergy status to other drugs, medicaments and biological substances; Z91.048 Other nonmedicinal substance allergy status; Z88.7 Allergy status to serum and vaccine; Z79.4 Long term (current) use of insulin; Z79.85 Long-term (current) use of injectable non-insulin antidiabetic drugs; Z79.899 Other long term (current) drug therapy
CPT/HCPCS: 63685; 82962; 96374; 99221; C1755; C1772; C1820; J0690; J1580; J2004; J2250; J2704; J3010; J7120